=== PATIENT | female | born 1975 | race Two or more races ===

== ENCOUNTER 2016-11-14 12:37 | Emergency (ER) | payer BC ==
[2016-11-14 12:50] VITALS: BP 118/80
[2016-11-14] MEDS ORDERED: Ketorolac INJ* 30 MG/ML 1 ML VIAL IM ONE (14:10)
--- NOTE | 2016-11-14 14:33 | UC ---
David Farris Adam, scribed for Kalli Ramirez MD on 11/14/16 at 1346 . Lower Extremity/Ankle HPI - HPI Summary HPI Summary: Pt is a 41 year old female presenting with leg pain. The pain starts in the left calf and radiates up the rest of the leg. She has some numbness in her left calf. The right calf has not been hurting as much today, but she states that she has been having intermittent pain and numbness in both legs for several months. She also reports swelling in both legs for several months. Pt has a Hx of spinal stenosis and degenerative discs in C5-C7. She reports back pain and a sensation like air blowing on her arms. She takes Motrin and Tramadol for the pain. She has been receiving injections and seeing Dr. Salcido (last seen 3 weeks ago, said MRI was unchanged). Her work consists of sitting down for most of the day. Pt had a URI several weeks ago. She also c/o chills and dizziness. No N/V/D, constipation, incontinence, visual disturbance. PMHx of right hip arthroscopy, left hip arthroscopy/debridement, ulcer, and kidney stones. - History of Current Complaint Chief Complaint: UCLowerExtremity Stated Complaint: LEG PAIN Hx Obtained From: Patient Hx Last Menstrual Period: january 2015 - iud Onset/Duration: Gradual Onset, Lasting Weeks, Still Present Severity Initially: Moderate Severity Currently: Moderate Aggravating Factor(s): Standing, Ambulation Alleviating Factor(s): Other - Tramadol, Motrin Able to Bear Weight: Yes - Allergies/Home Medications Allergies/Adverse Reactions: Allergies Allergy/AdvReac Type Severity Reaction Status Date / Time Iohexol [From Omnipaque] Allergy pt stated Verified 11/14/16 12:51 mouth,tongue,lip felt numb after injection . Latex Allergy Itching Verified 11/14/16 12:51 Milnacipran [From Savella] Allergy Unknown Verified 11/14/16 12:51 Reaction Details Phenazopyridine Allergy Hives/Diff. Verified 11/14/16 12:51 [From Pyridium] Breathing/I tching Shellfish Allergy AdvReac Blisters Verified 11/14/16 12:51 Sulfamethoxazole AdvReac Itching Verified 11/14/16 12:51 w/Trimethoprim [From Bactrim] contrast dye Allergy pt stated Uncoded 11/14/16 12:51 mouth,tongue,lip felt numb after injection . PMH/Surg Hx/FS Hx/Imm Hx Endocrine History Of: Denies: Diabetes, Thyroid Disease Cardiovascular History Of: Denies: Cardiac Disorders, Hypertension, Pacemaker/ICD Respiratory History Of: Denies: COPD, Asthma GI/ History Of: Reports: Ulcer, Kidney Stones Denies: Renal Disease Cancer History Of: Denies: Breast Cancer - Surgical History Surgical History: Yes Surgery Procedure, Year, and Place: D&C. right hip arthroscopy 07/08/2013 [place]. HEMORROIDECTOMY. WISDOM TEETH EXTRACTION. LEFT HIP ARTHROSCOPY/ DEBRIDEMENT 02/02, [place],. PRECANCEROUS SKIN CELLS REMOVED 01/2016 - Family History Known Family History: Positive: Cardiac Disease - mother, Other - mother - aortic aneurysm - Social History Occupation: Employed Full-time Lives: Alone Alcohol Use: Rare Substance Use Type: None Smoking Status (MU): Never Smoked Tobacco Review of Systems Constitutional: Chills Musculoskeletal: Myalgia Neurological: Weakness, Numbness, Other - Dizziness All Other Systems Reviewed And Are Negative: Yes Physical Exam Triage Information Reviewed: Yes Appearance: No Pain Distress, Well-Nourished, Other: - [place] color Vital Signs: Initial Vital Signs Temp 97.7 F 11/14/16 12:44 Pulse 115 11/14/16 12:44 Resp 18 11/14/16 12:44 BP 118/80 11/14/16 12:44 Pulse Ox 100 11/14/16 12:44 Eyes: Positive: Conjunctiva Clear, Other: - Clear corneas ENT: Positive: Pharynx normal - No purulence, Other: - Normal TM's and canals, no discharge. Negative: Pharyngeal erythema, Nasal drainage, TM red, Tonsillar swelling, Tonsillar exudate Dental Exam: Normal Neck: Positive: Supple, Nontender, Other: - FROM, no crepitus Respiratory: Positive: Chest non-tender, Normal breath sounds, No respiratory distress. Negative: Rhonchi, Wheezing Cardiovascular: Positive: RRR, No Murmur, Pulses Normal - Pedal pulses normal Abdomen Description: Positive: Nontender, No Organomegaly. Negative: Bruit, CVA Tenderness (R), CVA Tenderness (L) Bowel Sounds: Positive: Present, Other: - Normoactive Musculoskeletal: Positive: Other: - Left buttock tenderness. Tenderness in the left inguinal area. Full ROM at the waist. Negative calf tenderness. Elbows, wrists, knees, and ankles normal. Neurological: Positive: Alert, Muscle Tone Normal, Other: - Good gross coordination. Good heel to toe walk and good fine coordination. DTR's brisk and symmetric in all 4 extremities. Psychological: Positive: Normal Response To Family, Age Appropriate Behavior Skin: Positive: Other - Good color. Ecchymotic area on the medial aspect of the distal third of the leg.. Negative: rashes, significant lesion(s) Lower Extremity Course/Dx - Differential Dx/Diagnosis Provider Diagnoses: Spinal stenosis Discharge - Discharge Plan Condition: Stable Disposition: HOME Prescriptions: Naproxen [Naproxen 500 MG TABS] 500 mg PO BID #30 tab Patient Education Materials: Lumbar Spinal Stenosis (ED) Referrals: Alba Birch MD [Medical Doctor] - Additional Instructions: Follow up with Dr. Birch. Continue with regular medications, except take Naproxen instead of Motrin PM. Take the Naproxen with food or milk. You can take Benadryl (25-50 mg) at bedtime. The documentation as recorded by the David jacobs Adam accurately reflects the service I personally performed and the decisions made by me, Kalli Ramirez MD.
== END 2016-11-14 14:36 | disposition home or self-care (01) ==
LOC: UCEAST 12:37
DX: M48.00 Spinal stenosis, site unspecified (principal); Z88.1 Allergy status to other antibiotic agents; Z88.8 Allergy status to other drugs, medicaments and biological substances; Z91.041 Radiographic dye allergy status
CPT/HCPCS: 99212; G0463; J1885

== ENCOUNTER → 2017-06-02 17:44 | Emergency (ER) | payer BC ==
[~2017-06-02 17:44] MED LIST: HYDROcodone/ACETAMIN 5-325 MG* 1 TAB PO ONE; Morphine INJ* 4 MG/ML 1 ML SYRINGE IV ONE; NS 0.9% 1000 ML* 1,000 ML IV ONE; Ondansetron INJ* 2 MG/ML VIAL IV ONE
[2017-06-02 18:29] LABS: Hematocrit 39 % (35-47); Hemoglobin 13.2 g/dl (12.0-16.0); Mean Corpuscular HGB Conc 34 g/dl (31-36); Mean Corpuscular Hemoglobin 30 pg (27-31); Mean Corpuscular Volume 87 fL (80-97); Mean Platelet Volume 10 um3 (7.4-10.4); Red Blood Count 4.48 10^6/ul (4.0-5.4); Red Cell Distribution Width 13 % (10.5-15); White Blood Count 5.4 10^3/ul (3.5-10.8)
[2017-06-02 18:41] LABS: ALT 14 U/L (7-52); AST 21 U/L (13-39); Albumin 4.5 g/dL (3.2-5.2); Alkaline Phosphatase 67 U/L (34-104); Anion Gap 7 mmol/L (2-11); BUN/Creatinine Ratio 12.1 (8-20); Blood Urea Nitrogen 12 mg/dL (6-24); C Reactive Protein < 1.00 mg/L (< 5.00); CO2 Carbon Dioxide 27 mmol/L (22-32); Calcium 9.6 mg/dL (8.6-10.3); Chloride 106 mmol/L (101-111); EGFR African American 79.1 (>60); EGFR Non-African American 61.5 (>60); Glucose 92 mg/dL (70-100); Lipase 34 U/L (11.0-82.0); Magnesium 2.1 mg/dL (1.9-2.7); Potassium 3.7 mmol/L (3.5-5.0); Sodium 140 mmol/L (133-145); Total Protein 7.5 g/dL (6.4-8.9)
--- NOTE | 2017-06-02 20:30 | RAD ---
Indication: Right upper quadrant pain. Real-time sonography of the right upper quadrant was marked. The liver measures 17.3 cm in length. There are no focal lesions or intrahepatic ductal dilatation noted. The gallbladder demonstrates no gallstones, pericholecystic fluid or wall thickening. The common duct measures 4 mm. The right kidney measures 10.1 x 4.2 x 4.6 cm. No hydronephrosis is noted. The pancreas head, neck and proximal body demonstrates no mass or pancreatic ductal dilatation. The proximal aorta and inferior vena cava are unremarkable. IMPRESSION: Borderline hepatomegaly. No evidence of cholelithiasis or biliary duct dilatation.
[2017-06-02 20:32] LABS: Urine Bacteria Absent (Absent); Urine Bilirubin Negative (Negative); Urine Glucose Negative (Negative); Urine Nitrite Negative (Negative)
--- NOTE | 2017-06-02 22:04 | ED ---
Silvano Farris SooYoung, scribed for Kika Joya MD on 06/02/17 at 1946 . Abdominal Pain/Female - HPI Summary HPI Summary: A 41 y/o F presents to ED with c/o abd pain onset this AM. Radiates to back. Denies dysuria, hematuria. She states she didn't eat this AM. Pert PMx: kidney stones. Current sx feels different than kidney stones. Pt had pain below her R breast and she used an organic balm to alleviate the pain yesterday. [facility]: post- menopausal. Denies daily meds other than allergy medicine. - History of Current Complaint Chief Complaint: EDAbdPain Stated Complaint: SHARP ABD PAIN Time Seen by Provider: 06/02/17 17:53 Hx Obtained From: Patient Hx Last Menstrual Period: january 2015 - iud Onset/Duration: Sudden Onset, Lasting Hours - this AM, Still Present Timing: Constant Severity Initially: Moderate Severity Currently: Severe Pain Intensity: 8 Pain Scale Used: 0-10 Numeric Location: Diffuse Radiates: Yes Radiates to: Back Associated Signs and Symptoms: Negative: Urinary Symptoms Allergies/Adverse Reactions: Allergies Allergy/AdvReac Type Severity Reaction Status Date / Time Iohexol [From Omnipaque] Allergy pt stated Verified 11/14/16 12:51 mouth,tongue,lip felt numb after injection . Latex Allergy Itching Verified 11/14/16 12:51 Milnacipran [From Savella] Allergy Unknown Verified 11/14/16 12:51 Reaction Details Phenazopyridine Allergy Hives/Diff. Verified 11/14/16 12:51 [From Pyridium] Breathing/I tching Shellfish Allergy AdvReac Blisters Verified 11/14/16 12:51 Sulfamethoxazole AdvReac Itching Verified 11/14/16 12:51 w/Trimethoprim [From Bactrim] contrast dye Allergy pt stated Uncoded 11/14/16 12:51 mouth,tongue,lip felt numb after injection . PMH/Surg Hx/FS Hx/Imm Hx Previously Healthy: No Endocrine/Hematology History: Reports: Hx Anemia, Other Endocrine/Hematological Disorders - Hepatic (Fatty Liver) Denies: Hx Diabetes, Hx Thyroid Disease Cardiovascular History: Denies: Hx Hypertension, Hx Pacemaker/ICD Respiratory History: Reports: Hx Chronic Bronchitis, Hx Seasonal Allergies Denies: Hx Asthma, Hx Chronic Obstructive Pulmonary Disease (COPD) GI History: Reports: Hx Gastroesophageal Reflux Disease, Hx Irritable Bowel, Hx Ulcer History: Reports: Hx Kidney Stones Denies: Hx Dialysis, Hx Renal Disease Musculoskeletal History: Reports: Hx Arthritis, Hx Back Problems - neck, Hx Fibromyalgia, Hx Tendonitis, Other Musculoskeletal History - Spinal stenosis; Degenerative Disc Disease Sensory History: Reports: Hx Contacts or Glasses Denies: Hx Hearing Aid Opthamlomology History: Reports: Hx Contacts or Glasses Neurological History: Reports: Hx Headaches - TMJ, Other Neuro Impairments/ Disorders - PAIN CLINIC PATIENT Psychiatric History: Denies: Hx Panic Disorder - Cancer History Cancer Type, 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 right hip arthroscopy 07/08/2013 [place]. HEMORROIDECTOMY. WISDOM TEETH EXTRACTION. LEFT HIP ARTHROSCOPY/ DEBRIDEMENT 02/02, [place],. PRECANCEROUS SKIN CELLS REMOVED 01/2016 Infectious Disease History: Denies: Hx Clostridium Difficile, Hx Hepatitis, Hx Human Immunodeficiency Virus (HIV), Hx of Known/Suspected MRSA, Hx Shingles, Hx Tuberculosis, Hx Known/ Suspected VRE, Hx Known/Suspected VRSA, History Other Infectious Disease, Traveled Outside the [place] in Last 30 Days - Family History Known Family History: Positive: Cardiac Disease - mother, Hypertension, Other - mother - aortic aneurysm - Social History Occupation: Employed Full-time Lives: With Family Alcohol Use: Rare Hx Substance Use: No Substance Use Type: Reports: None Hx Tobacco Use: No Smoking Status (MU): Never Smoked Tobacco Review of Systems Negative: Fever Positive: Abdominal Pain Negative: dysuria, hematuria All Other Systems Reviewed And Are Negative: Yes Physical Exam Triage Information Reviewed: Yes Vital Signs On Initial Exam: Initial Vitals Temp Pulse Resp BP Pulse Ox 97.8 F 88 20 143/89 100 06/02/17 17:46 06/02/17 17:46 06/02/17 17:46 06/02/17 17:46 06/02/17 17:46 Vital Signs Reviewed: Yes Appearance: Positive: Well-Appearing, No Pain Distress Skin: Positive: Warm, Skin Color Reflects Adequate Perfusion, Dry Eyes: Positive: EOMI, [place] ENT: Positive: Pharynx normal, TMs normal Neck: Positive: Supple, Nontender Respiratory/Lung Sounds: Positive: Clear to Auscultation, Breath Sounds Present. Negative: Rales, Rhonchi, Wheezes Cardiovascular: Positive: RRR. Negative: Murmur, Rub, Other - ng: gallop Abdomen Description: Positive: Soft, Other: - pos: RUQ tenderness; neg: rebounding. Negative: Distended, Guarding Bowel Sounds: Positive: Present Musculoskeletal: Positive: Strength/ROM Intact. Negative: Edema Left, Edema Right Neurological: Positive: Sensory/Motor Intact, Alert, Oriented to Person Place, Time, CN Intact II-III Psychiatric: Positive: Affect/Mood Appropriate Diagnostics - Vital Signs Vital Signs Temp Pulse Resp BP Pulse Ox 06/02/17 17:46 97.8 F 88 20 143/89 100 - Laboratory Lab Results: Lab Results 06/02/17 06/02/17 06/02/17 Range/Units 18:11 18:11 18:11 WBC 5.4 (3.5-10.8) 10^3/ul RBC 4.48 (4.0-5.4) 10^6/ul Hgb 13.2 (12.0-16.0) g/dl Hct 39 (35-47) % MCV 87 (80-97) fL MCH 30 (27-31) pg MCHC 34 (31-36) g/dl RDW 13 (10.5-15) % Plt Count 211 (150-450) 10^3/ul MPV 10 (7.4-10.4) um3 Neut % (Auto) 52.1 (38-83) % Lymph % (Auto) 38.2 (25-47) % [place] % (Auto) 7.4 (1-9) % Eos % (Auto) 1.6 (0-6) % Baso % (Auto) 0.7 (0-2) % Absolute Neuts (auto) 2.8 (1.5-7.7) 10^3/ul Absolute Lymphs (auto) 2.1 (1.0-4.8) 10^3/ul Absolute Monos (auto) 0.4 (0-0.8) 10^3/ul Absolute Eos (auto) 0.1 (0-0.6) 10^3/ul Absolute Basos (auto) 0 (0-0.2) 10^3/ul Absolute Nucleated RBC 0.01 10^3/ul Nucleated RBC % 0.2 D-Dimer, Quantitative (Less Than 230) ng/mL Sodium 140 (133-145) mmol/L Potassium 3.7 (3.5-5.0) mmol/L Chloride 106 (101-111) mmol/L Carbon Dioxide 27 (22-32) mmol/L Anion Gap 7 (2-11) mmol/L BUN 12 (6-24) mg/dL Creatinine 0.99 H (0.51-0.95) mg/dL Est GFR ( Amer) 79.1 (>60) Est GFR (Non-Af Amer) 61.5 (>60) BUN/Creatinine Ratio 12.1 (8-20) Glucose 92 (70-100) mg/dL Lactic Acid 0.9 (0.5-2.0) mmol/L Calcium 9.6 (8.6-10.3) mg/dL Magnesium 2.1 (1.9-2.7) mg/dL Total Bilirubin 0.60 (0.2-1.0) mg/dL AST 21 (13-39) U/L ALT 14 (7-52) U/L Alkaline Phosphatase 67 (34-104) U/L C-Reactive Protein < 1.00 (< 5.00) mg/L Total Protein 7.5 (6.4-8.9) g/dL Albumin 4.5 (3.2-5.2) g/dL Globulin 3.0 (2-4) g/dL Albumin/Globulin Ratio 1.5 (1-3) Lipase 34 (11.0-82.0) U/L Beta HCG, Quant 0.71 mIU/mL Urine Color Urine Appearance Urine pH (5-9) Ur Specific [place] (1.010-1.030) Urine Protein (Negative) Urine Ketones (Negative) Urine Blood (Negative) Urine Nitrate (Negative) Urine Bilirubin (Negative) Urine Urobilinogen (Negative) Ur Leukocyte Esterase (Negative) Urine WBC (Auto) (Absent) Urine RBC (Auto) (Absent) Ur Squamous Epith Cells (Absent) Amorphous Crystals (Absent) Urine Bacteria (Absent) Urine Glucose (Negative) 06/02/17 06/02/17 Range/Units 18:11 20:18 WBC (3.5-10.8) 10^3/ul RBC (4.0-5.4) 10^6/ul Hgb (12.0-16.0) g/dl Hct (35-47) % MCV (80-97) fL MCH (27-31) pg MCHC (31-36) g/dl RDW (10.5-15) % Plt Count (150-450) 10^3/ul MPV (7.4-10.4) um3 Neut % (Auto) (38-83) % Lymph % (Auto) (25-47) % [place] % (Auto) (1-9) % Eos % (Auto) (0-6) % Baso % (Auto) (0-2) % Absolute Neuts (auto) (1.5-7.7) 10^3/ul Absolute Lymphs (auto) (1.0-4.8) 10^3/ul Absolute Monos (auto) (0-0.8) 10^3/ul Absolute Eos (auto) (0-0.6) 10^3/ul Absolute Basos (auto) (0-0.2) 10^3/ul Absolute Nucleated RBC 10^3/ul Nucleated RBC % D-Dimer, Quantitative < 200 (Less Than 230) ng/mL Sodium (133-145) mmol/L Potassium (3.5-5.0) mmol/L Chloride (101-111) mmol/L Carbon Dioxide (22-32) mmol/L Anion Gap (2-11) mmol/L BUN (6-24) mg/dL Creatinine (0.51-0.95) mg/dL Est GFR ( Amer) (>60) Est GFR (Non-Af Amer) (>60) BUN/Creatinine Ratio (8-20) Glucose (70-100) mg/dL Lactic Acid (0.5-2.0) mmol/L Calcium (8.6-10.3) mg/dL Magnesium (1.9-2.7) mg/dL Total Bilirubin (0.2-1.0) mg/dL AST (13-39) U/L ALT (7-52) U/L Alkaline Phosphatase (34-104) U/L C-Reactive Protein (< 5.00) mg/L Total Protein (6.4-8.9) g/dL Albumin (3.2-5.2) g/dL Globulin (2-4) g/dL Albumin/Globulin Ratio (1-3) Lipase (11.0-82.0) U/L Beta HCG, Quant mIU/mL Urine Color Straw Urine Appearance Clear Urine pH 7.0 (5-9) Ur Specific [place] 1.011 (1.010-1.030) Urine Protein Negative (Negative) Urine Ketones Negative (Negative) Urine Blood Negative (Negative) Urine Nitrate Negative (Negative) Urine Bilirubin Negative (Negative) Urine Urobilinogen Negative (Negative) Ur Leukocyte Esterase 1+ H (Negative) Urine WBC (Auto) Trace(0-5/hpf) (Absent) Urine RBC (Auto) Absent (Absent) Ur Squamous Epith Cells Present H (Absent) Amorphous Crystals Present H (Absent) Urine Bacteria Absent (Absent) Urine Glucose Negative (Negative) Result Diagrams: 06/02/17 18:11 06/02/17 18:11 Lab Statement: Any lab studies that have been ordered have been reviewed, and results considered in the medical decision making process. - Ultrasound No standard instances Ultrasound Interpretation: No Acute Changes - IMPRESSION: Borderline hepatomegaly. No evidence of cholelithiasis or biliary duct dilatation. Ultrasound Interpretation Completed By: Radiologist - EKG 1908 Cardiac Rate: NL - 79 bpm EKG Rhythm: Sinus Rhythm ST Segment: Normal - no ST elevation Re-Evaluation - Re-Evaluation 1 Re-Evaluation Time: 21:20 Change: Unchanged Comment: Discussing results with pt. Abdominal Pain Fem Course/Dx - Course Course Of Treatment: 41 yo female with ruq abd pain neg u/s and neg labs - ddimer also neg (she does have a melanoma hx). Pt was given pain meds and f/u with pmd - Diagnoses Provider Diagnoses: Abdominal pain Discharge - Discharge Plan Condition: Stable Disposition: HOME Prescriptions: HYDROcodone/ACETAMIN 5-325 MG* [[place] 5-325 TAB*] 1 tab PO Q8H PRN #20 tab MDD 3 PRN Reason: Pain Patient Education Materials: Hydrocodone/Acetaminophen (By mouth), Acute Abdominal Pain (ED) Referrals: Delilah Olvera MD [Primary Care Provider] - Additional Instructions: Follow up with your primary care provider in the next 2-3 days. Please return to the ED if you experience new or worsening symptoms. The documentation as recorded by the Silvano jacobs SooYoung accurately reflects the service I personally performed and the decisions made by me, Kika Joya MD.
[2017-06-02 22:49] VITALS: BP 135/94
== END | disposition home or self-care (01) ==
LOC: ED 17:44
DX: R10.9 Unspecified abdominal pain (principal)
CPT/HCPCS: 36415; 76705; 80053; 81003; 81015; 83605; 83690; 83735; 84702; 85025; 85379; 86140; 87086; 93005; 99283; J2270; J2405

== ENCOUNTER 2018-11-13 11:07 | Emergency (ER) | payer BC ==
--- OUTSIDE RECORDS SUMMARY | 2018-11-13 11:38 | XMS REPORT | Continuity of Care Document ---
:1975 External Reference #:[id number] Author Name GeovannaVicki duarte Care Team Providers Name Role Phone Delilah Olvera MD Primary Care Physician Unavailable Payers Type Date Identification Numbers Payment Provider Subscriber Policy Number: [id number] [employer] Cat Isaacs PayID: [id number] [address] [address] [place] [address] Expires: 2016 Policy Number: [employer] Medicaid Cat Isaacs [id number] PayID: [id number] [address] Effective: 2012 Policy Number: [employer] Medicaid Cat Isaacs [id number] Expires: 2013 PayID: [id number] [place] [address] Effective: 2012 Policy Number: [employer] Cat Isaacs [id number] Expires: 2014 PayID: [id number] [address] Advance Directives Description No Information Available Problems Date Description Provider Status Onset: 07/28/2012 Myalgia & Myositis Unspecified Delilah Olvera M.D. Active Onset: 07/28/2012 Irritable bowel syndrome Delilah Olvera M.D. Active Onset: 12/27/2014 Anaphylaxis due to shellfish Delilah Olvera M.D. Active Onset: 12/27/2014 Allergic rhinitis Delilah Olvera M.D. Active Onset: 12/27/2014 Allergic asthma Delilah Olvera M.D. Active Onset: 12/27/2014 Atopic dermatitis Delilah Olvera M.D. Active Onset: 01/11/2015 Calcium renal calculus Delilah Olvera M.D. Active Note: calcium Onset: 01/11/2015 Steatosis of liver Delilah Olvera M.D. Active Onset: 01/11/2015 Osteoarthritis of multiple joints Delilah Olvera M.D. Active Note: hip and L spine Onset: 07/07/2015 Displacement of cervical Nick Salcido M.D. Active intervertebral disc without myelopathy Onset: 10/31/2016 Cervical spondylosis without Nick Salcido M.D. Active myelopathy Onset: 02/27/2008 Cervical disc disorder Delilah Olvera M.D. Inactive Inactive: 07/20/2015 Note: mild central stenosis , broad based disk without foraminal stenosis Onset: 07/28/2012 Liver function tests abnormal Delilah Olvera M.D. Resolved Resolved: 01/11/2015 Onset: 06/02/2013 Thrombosed external hemorrhoids Mario Renner M.D. Resolved Resolved: 01/11/2015 Onset: 09/21/2014 Cellulitis Mario Renner M.D. 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 Tobacco Use Start: Unknown Never Smoked Cigarettes Smoking Status Reviewed: 10/30/18 Never Smoked Cigarettes ETOH Use Drinks Alcoholic Beverages Occasionally Tobacco Use Start: Unknown Patient has never smoked Recreational Drug Use Denies Drug Use Exercise Type/Frequency Exercises regularly # Partners in a Lifetime 5 Allergies, Adverse Reactions, Alerts Date Description Reaction Status Severity Comments 07/16/2012 Bactrim Urticaria Active Severe 07/16/2012 Piridium Urticaria Active Severe 07/16/2012 Latex Active 07/22/2012 Savella Active Mild dizziness, couldnt move 12/02/2013 Shellfish-derived Anaphylaxis Active Products 05/16/2016 Latex Active Medications Medication Date Status Form Strength Qnty SIG Indications Ordering Provider Diclofenac Sodium 10/30 Active Gel 3% 200gm apply topically Meredith, to feet, M.D. hands, wrist three to four times a day as needed Triamcinolone 06/06 Active Cream 0.5% 30gm apply R21 Thea Acetonide twice Cotton, daily to M.D. the affected area Miralax 03/06 Active Powder 17gm 1unit 17 grams K58.9 s by mouth May, every day M.D. as needed Magnesium Oxide 03/06 Active Capsules 400mg 60cap 1 cap E83.42 Delilah /2018 s daily Boom Olvera Nasonex 10/23 Active Suspension 50mcg/Act 30uni 1 spray J06.9 ts both mark Olvera M.DHeydi twice a day Levocetirizine 01/28 Active Tablets 5mg 30tab 1 by Delilah Dihydrochloride s mouth May, every day M.D. Proair HFA 07/27 Active Aerosol 108(90Bas 1unit 2 puffs R05 Delilah /2014 e) s every 4-6 Olvera, mcg/Act hours as M.D. needed Elbow 06/30 Active Misc 1unit as needed 726.32 Delilah Support/Countour s May, Cut/Medium M.D. Biotin 00 Active Tablets 7500 1 PO qd Unknown /0000 Advil Active Tablets 200mg 3 tabs as Unknown /0000 needed Benadryl Allergy Active Tablets 25mg 1-2 tabs Unknown /0000 twice a day for itching Desloratadine Active Tablets 5mg 30tab 1 by Delilah /0000 s mouth Olvera, every day M.D. Tizanidine HCL Active Capsules 2mg 14cap 1 cap by Delilah /0000 s mouth as May, needed at M.D. night for spasms Triamcinolone 05/09 Hx Cream 0.5% 30gm apply R21 Quique Acetonide twice Angela, [employer] SP[employer]ER OPERATOR - daily to 10/08 affected area Cephalexin 05/04 Hx Tablets 500mg 28tab 1 tab po Alhaji s q6h Glenn Lynn M.D.,FACP 05/11 Cephalexin 04/03 Hx Capsules 500mg 28cap take one L03.114 Alhaji /2016 s capsule Mic Alexandre, - every 6 M.D.,FACP 04/10 hours for 7 days Fluconazole 04/03 Hx Tablets 150mg 2tabs one by Quique mouth february ELIER Miller - repeat in 06/05 3 days as needed Meloxicam 12/19 Hx Tablets 7.5mg 60tab take one s tab twice Meredith, - daily as M.D. 04/03 needed for pain, avoid other nsaids Neti Pot Kit 10/23 Hx Kit 2300-700m 1unit Use as J06.9 Jc Sinus Wash/Clear /2016 g s directed Matheny, [place] - twice M.D. 11/28 daily Patanol 06/05 Hx Solution 0.1% 5ml 1 gtt B30.9 Adam /2015 both eyes Jason, [employer] SP[employer]ER OPERATOR - bid x's 10/23 Zantac 150 02/26 Hx Tablets 150mg 1 by R10.13 Unknown Maximum Strength /2015 mouth - twice a Fluticasone 01/03 Hx Suspension 50mcg/Act 16gm use one Jc Propionate spray Matheny, - into each M.D. 10/08 nostril /2016 every morning as directed Amoxicillin/Clavu 01/02 Hx Tablets 875-125mg 20tab 1 by J01.90 [place] lanate Potassium /2015 s mouth Pachikara, - twice a M.D. Duloxetine HCL 08/[address] 20mg 60cap take one M79.7 Delilah /2015 Part s capsule May, - by mouth M.D. 01/18 one time daily Lyrica 07/20 Hx Capsules 25mg 30cap once a M79.7 Delilah s day May, - M.D. 08/22 Methylprednisolon 07/07 Hx Tablets 4mg 1pack take as 722.0 Nick klein (Keo) directed Loly, - M.D. 07/13 Naproxen 07/07 Hx Tablets 500mg 60tab 1 by M50.22 Nick s mouth Loly, - twice a M.D. 02/28 day after /2016 meals after medrol complete Cyclobenzaprine 02/11 Hx Tablets 10mg 10tab one or 840.8 Josefa HCL s 1/2 by Clarence, - mouth at M.D. 02/14 bedtime as needed spasm ibuprofen 02/11 Hx Tablets 600mg 90tab three 840.8 Josefa /2015 s times a Clarence, - day as M.D. 02/14 needed Indomethacin 01/28 Hx Capsules 50mg 1 by mouth - twice a Omeprazole 01/[address] 20mg 1 by mouth - every day 07/07 Oxycodone HCL 01/28 Hx Tablets 5mg 50tab 1-2 by s mouth - four 06/16 times day as needed Ranitidine HCL 01/19 Hx Tablets 150mg 60tab take one 787.1 s tablet by May - mouth M.D. 05/21 twice day Ciprofloxacin HCL 12/24 Hx Tablets 500mg 14tab 1 tab by 599.0 Adam s mouth Jason [employer] SP[employer]ER OPERATOR - twice a 12/26 day x's days Diflucan 12/24 Hx Tablets 150mg 2tabs sig 1 by 599.0 Adam mouth ELIER Gomez - repeat in 12/26 1 week needed Cephalexin 09/21 Hx Capsules 500mg 21cap three 682.8 s times a Zurdo, - day M.D. 12/24 Fluconazole 09/21 Hx Tablets 150mg 1tabs one time 682.8 dose Zurdo, - M.D. 12/24 Ibuprofen 09/21 Hx Tablets 600mg 45tab three 682.8 s times a Zurdo, - day as M.D. 02/14 needed Prednisone 07/27 Hx Tablets 10mg QS take 3 786.2 tab daily May, - x 2 days M.D. 09/21 then tab daily x 3 days and then 1 tab daily X3 days Duloxetine HCL 07/[address] 20mg 30cap 1 tab po 729.1 Zsofi Part s q day Jack, - JUDICIAL ASSISTANT 12/24 Omeprazole 07/[address] 20mg 30cap 1 tab by 536.8 Zsofi s mouth Jack, - every JUDICIAL ASSISTANT 12/24 Tizanidine HCL 12/14 Hx Capsules 2mg 30cap 1 by s mouth at [facility], - bedtime M.D. 06/06 as needed Pepcid ac Maximum 12/02 Hx Tablets 20mg 30tab once a 536.8 Delilah s day May, - M.D. 02/10 Vitamin D3 High 06/30 Hx Capsules 1000Unit 30cap 1 a day E55.9 Delilah s May - M.DHeydi 04/03 Zolpidem Tartrate 04/29 Hx Tablets 5mg 20tab 1 tab by 780.52 s mouth in [facility], - night as M.D. 12/02 needed Meloxicam 11/25 Hx Tablets 7.5mg 60tab 1 po bid 848.8 s as needed Shubham, - for pain M.D. 07/07 Lyrica 09/18 Hx Capsules 50mg 60cap take 1 729.1 s tab po hs May - M.D. 11/25 Amoxicillin 09/08 Hx Tablets 875mg 20tab 1 po bid s May - M.DHeydi 09/18 Claritin 09/04 Hx Tablets 10mg 10tab 1 po qd 465.8 Delilah /2012 s May - M.D. 04/29 Cymbalta 07/[address] 60mg 30cap 1 po qd 729.1 Delilah /2012 Part s May - M.D. 09/04 Miralax 07/22 Hx Packet [id number] 1mon 17 gm K58.9 every day May, - as needed M.D. 03/06 Cymbalta 07/[address] 60mg 14cap 1 po qd 729.1 Part s May - M.D. 09/[address] 60mg 30cap 1 po qd Unknown /0000 Part s - 11/25 Pepcid ac Hx Tablets 10mg 60tab 1 po bid Unknown /0000 s prn - 02/10 Tramadol HCL Hx Tablets 50mg 120ta qid prn Unknown /0000 bs - 06/06 Mobic Hx Tablets 7.5mg 30tab 1 po bid Unknown /0000 s prn - 12/24 Tizanidine HCL Hx Capsules 4mg 30cap take one Delilah / s tablet at [facility], - bedtime X M.D. 12/14 7 days then as needed Voltaren Hx Gel 1% 500un Apply A Delilah 0000 its Small [facility], - Amount Of M.D. 06/16 Topically Four Times A Day as Needed Zyrtec Allergy Hx Capsules 10mg 30cap 1 po qd Unknown /0000 s - 02/09 Nasonex Hx Suspension 50mcg/Act 17gm 2 sprays to each Pachikara, - nostril M.D. 10/23 daily Methocarbamol Hx Tablets 500mg 2 po q 4- [place], /0000 6 hrs prsung Gaspar MD - 06/30 Aspirin Hx Tablets 325mg 1 by Unknown /0000 mouth - every day 02/14 Vitamin B12 Hx Tablets ER 1000mcg 1 by Unknown /0000 mouth - every day 04/03 Naprosyn Hx Tablets 500mg twice Unknown /0000 daily - with food 09/12 as needed /2015 Naproxen Hx Tablets 500mg 1 tablet Unknown /0000 with food - by mouth 12/19 twice day Metronidazole Hx Tablets 500mg one Unknown /0000 tablet by - mouth 2 06/05 daily for 7 days Hydrocodone-Aceta Hx Tablets 5-325mg 1 tab by Unknown minophen /0000 mouth - every 4- 10/08 6 hours /2016 as needed pain Immunizations CPT Code Status Date Vaccine Lot # [id number] Given 09/22/2015 Tdap - Tetanus/Diptheria/Acellular Pertussis [id number] Given 07/20/2015 Influenza Virus Vaccine, Quadrivalent, Split, [id number] Preservative Free [id number] Given 09/30/2014 Flu Vaccine Split Virus Preservative Free For Indiv [id number] 3Yr Older 29916 Given 11/25/2012 Influenza Virus 3Yrs & Over Vital Signs Date Vital Result Comment 10/30/2018 11:05am Height 60 inches 5'0" Weight 125.38 lb Heart Rate 86 /min BP Systolic 116 mmHg BP Diastolic 78 mmHg Pain Level 3 O2 % BldC Oximetry 99 % BMI (Body Mass Index) 24.5 kg/m2 04/24/2018 12:59pm Height 60 inches 5'0" Weight 129.00 lb Heart Rate 83 /min BP Systolic Sitting 118 mmHg BP Diastolic Sitting 80 mmHg Body Temperature 97.7 F O2 % BldC Oximetry 98 % BMI (Body Mass Index) 25.2 kg/m2 03/06/2018 12:06pm Height 60 inches 5'0" Weight 129.00 lb Heart Rate 90 /min BP Systolic Sitting 102 mmHg BP Diastolic Sitting 70 mmHg O2 % BldC Oximetry 99 % BMI (Body Mass Index) 25.2 kg/m2 01/02/2018 12:09pm Weight 126.50 lb Heart Rate 94 /min BP Systolic Sitting 104 mmHg BP Diastolic Sitting 70 mmHg Pain Level 7 O2 % BldC Oximetry 99 % 11/28/2017 4:00pm Weight 123.12 lb Heart Rate 80 /min BP Systolic Sitting 122 mmHg BP Diastolic Sitting 68 mmHg Body Temperature 98.2 F O2 % BldC Oximetry 99 % 10/08/2017 12:10pm Weight 120.25 lb Heart Rate 86 /min BP Systolic Sitting 130 mmHg BP Diastolic Sitting 80 mmHg Pain Level 7 O2 % BldC Oximetry 98 % 06/06/2017 1:42pm Weight 120.00 lb Heart Rate 83 /min BP Systolic Sitting 102 mmHg BP Diastolic Sitting 68 mmHg Body Temperature 97.3 F O2 % BldC Oximetry 94 % 05/09/2017 3:44pm Weight 121.00 lb Heart Rate 80 /min BP Systolic Sitting 120 mmHg BP Diastolic Sitting 70 mmHg Respiratory Rate 16 /min Body Temperature 97.9 F 04/03/2017 10:22am Weight 146.00 lb Heart Rate 98 /min BP Systolic Sitting 120 mmHg BP Diastolic Sitting 78 mmHg Body Temperature 98.7 F O2 % BldC Oximetry 98 % 12/19/2016 1:17pm Height 60 inches 5'0" Heart Rate 84 /min BP Systolic Sitting 110 mmHg BP Diastolic Sitting 70 mmHg Respiratory Rate 14 /min Body Temperature 97.3 F 12/10/2016 3:50pm Height 60 inches 5'0" Weight 139.38 lb Heart Rate 84 /min BP Systolic Sitting 116 mmHg BP Diastolic Sitting 80 mmHg Respiratory Rate 14 /min Body Temperature 97.3 F BMI (Body Mass Index) 27.2 kg/m2 10/31/2016 1:24pm Height 60 inches 5'0" Weight 142.00 lb Heart Rate 66 /min BP Systolic Standing 124 mmHg BP Diastolic Standing 80 mmHg Pain Level 9 BMI (Body Mass Index) 27.7 kg/m2 10/23/2016 4:33pm Weight 142.00 lb Heart Rate 78 /min BP Systolic Sitting 118 mmHg BP Diastolic Sitting 74 mmHg Body Temperature 98.8 F O2 % BldC Oximetry 98 % 09/17/2016 3:04pm Height 60 inches 5'0" Weight 140.00 lb Heart Rate 72 /min BP Systolic Sitting 122 mmHg BP Diastolic Sitting 80 mmHg Pain Level 9 BMI (Body Mass Index) 27.3 kg/m2 09/12/2016 2:30pm Weight 140.00 lb Heart Rate 103 /min BP Systolic Sitting 118 mmHg BP Diastolic Sitting 88 mmHg Body Temperature 98.0 F Pain Level 8 L side of body O2 % BldC Oximetry 99 % 06/05/2016 4:24pm Weight 140.00 lb Heart Rate 84 /min BP Systolic 128 mmHg BP Diastolic 80 mmHg Body Temperature 97.7 F O2 % BldC Oximetry 99 % 05/16/2016 12:06pm Weight 140.00 lb Heart Rate 83 /min BP Systolic 122 mmHg BP Diastolic 76 mmHg Body Temperature 97.0 F O2 % BldC Oximetry 99 % 02/29/2016 1:56pm Weight 136.00 lb Heart Rate 89 /min BP Systolic Sitting 112 mmHg BP Diastolic Sitting 68 mmHg Body Temperature 97.8 F O2 % BldC Oximetry 98 % 01/03/2016 2:24pm Height 60 inches 5'0" Weight 136.12 lb Heart Rate 94 /min BP Systolic Sitting 102 mmHg BP Diastolic Sitting 60 mmHg Body Temperature 96.4 F O2 % BldC Oximetry 99 % BMI (Body Mass Index) 26.6 kg/m2 10/27/2015 9:51am Height 60 inches 5'0" Weight 133.00 lb Heart Rate 76 /min BP Systolic Sitting 110 mmHg BP Diastolic Sitting 70 mmHg Pain Level 9 L side BMI (Body Mass Index) 26.0 kg/m2 09/22/2015 12:10pm Height 60 inches 5'0" Weight 133.00 lb Heart Rate 96 /min BP Systolic Sitting 122 mmHg BP Diastolic Sitting 80 mmHg Respiratory Rate 15 /min Body Temperature 98.0 F O2 % BldC Oximetry 98 % BMI (Body Mass Index) 26.0 kg/m2 08/22/2015 11:19am Height 60 inches 5'0" Weight 130.00 lb Heart Rate 80 /min BP Systolic Sitting 118 mmHg BP Diastolic Sitting 70 mmHg Respiratory Rate 14 /min Body Temperature 98.0 F O2 % BldC Oximetry 97 % BMI (Body Mass Index) 25.4 kg/m2 07/25/2015 3:22pm Height 60 inches 5'0" Weight 130.00 lb Heart Rate 72 /min BP Systolic 120 mmHg BP Diastolic 70 mmHg Pain Level 7 neck,back,arms BMI (Body Mass Index) 25.4 kg/m2 07/20/2015 11:38am Weight 130.25 lb Heart Rate 88 /min BP Systolic Sitting 135 mmHg BP Diastolic Sitting 91 mmHg Body Temperature 97.4 F Pain Level 6 07/07/2015 3:45pm Height 60 inches 5'0" Weight 127.00 lb Heart Rate 62 /min BP Systolic Sitting 122 mmHg BP Diastolic Sitting 70 mmHg Pain Level 8 neck/L arm/back BMI (Body Mass Index) 24.8 kg/m2 06/16/2015 11:57am Weight 127.50 lb Heart Rate 87 /min BP Systolic Sitting 123 mmHg BP Diastolic Sitting 86 mmHg 02/14/2015 11:58am Heart Rate 96 /min BP Systolic Sitting 110 mmHg BP Diastolic Sitting 74 mmHg Body Temperature 97.5 F Pain Level 10 O2 % BldC Oximetry 98 % 02/11/2015 11:35am Heart Rate 89 /min BP Systolic Sitting 112 mmHg BP Diastolic Sitting 78 mmHg Body Temperature 97.1 F Pain Level 7 L shoulder & side O2 % BldC Oximetry 98 % 02/09/2015 12:02pm Weight 128.50 lb Heart Rate 74 /min BP Systolic Sitting 112 mmHg BP Diastolic Sitting 80 mmHg Body Temperature 97.2 F Pain Level 10 O2 % BldC Oximetry 99 % 01/19/2015 11:01am Weight 124.00 lb Heart Rate 88 /min BP Systolic Sitting 124 mmHg BP Diastolic Sitting 86 mmHg Body Temperature 97.3 F O2 % BldC Oximetry 98 % 01/05/2015 11:03am Weight 124.00 lb Heart Rate 92 /min BP Systolic Sitting 126 mmHg BP Diastolic Sitting 80 mmHg Body Temperature 96.1 F 12/24/2014 4:12pm Weight 121.50 lb Heart Rate 118 /min BP Systolic Sitting 108 mmHg BP Diastolic Sitting 84 mmHg Body Temperature 95.8 F O2 % BldC Oximetry 98 % 09/21/2014 3:38pm Weight 124.00 lb Heart Rate 86 /min BP Systolic Sitting 126 mmHg BP Diastolic Sitting 78 mmHg 07/27/2014 9:26am Weight 121.00 lb Heart Rate 88 /min BP Systolic Sitting 100 mmHg BP Diastolic Sitting 60 mmHg Body Temperature 98.4 F O2 % BldC Oximetry 98 % 07/07/2014 11:09am Weight 122.00 lb Heart Rate 100 /min BP Systolic Sitting 110 mmHg BP Diastolic Sitting 60 mmHg 05/11/2014 10:09am Height 59.5 inches 4'11.50" Weight 125.00 lb Heart Rate 80 /min BP Systolic Sitting 96 mmHg BP Diastolic Sitting 62 mmHg BMI (Body Mass Index) 24.8 kg/m2 02/10/2014 11:56am Height 59.5 inches 4'11.50" Weight 130.00 lb Heart Rate 78 /min BP Systolic Sitting 92 mmHg BP Diastolic Sitting 64 mmHg Body Temperature 97.2 F BMI (Body Mass Index) 25.8 kg/m2 12/02/2013 10:19am Weight 129.00 lb Heart Rate 68 /min BP Systolic Sitting 112 mmHg BP Diastolic Sitting 72 mmHg 06/30/2013 10:09am Weight 129.00 lb Heart Rate 91 /min BP Systolic Sitting 98 mmHg BP Diastolic Sitting 80 mmHg 06/02/2013 9:42am Height 59 inches 4'11" Weight 127.00 lb Heart Rate 103 /min BP Systolic Sitting 108 mmHg BP Diastolic Sitting 62 mmHg BMI (Body Mass Index) 25.6 kg/m2 04/29/2013 2:49pm Weight 131.00 lb Heart Rate 83 /min BP Systolic Sitting 104 mmHg BP Diastolic Sitting 74 mmHg 04/24/2013 4:04pm Weight 127.00 lb Heart Rate 76 /min BP Systolic Sitting 120 mmHg BP Diastolic Sitting 80 mmHg 04/20/2013 3:44pm Weight 130.00 lb Heart Rate 79 /min BP Systolic Sitting 100 mmHg BP Diastolic Sitting 90 mmHg 02/06/2013 12:48pm Weight 134.00 lb Heart Rate 76 /min BP Systolic Sitting 110 mmHg BP Diastolic Sitting 68 mmHg 12/24/2012 11:42am Height 59 inches 4'11" Weight 136.25 lb Heart Rate 64 /min BP Systolic Sitting 116 mmHg BP Diastolic Sitting 72 mmHg BMI (Body Mass Index) 27.5 kg/m2 12/04/2012 1:44pm Height 59 inches 4'11" Weight 134.00 lb Heart Rate 68 /min BP Systolic Sitting 116 mmHg BP Diastolic Sitting 76 mmHg BMI (Body Mass Index) 27.1 kg/m2 11/25/2012 1:41pm Height 59 inches 4'11" Weight 136.00 lb Heart Rate 76 /min BP Systolic Sitting 112 mmHg BP Diastolic Sitting 68 mmHg Body Temperature 97.6 F BMI (Body Mass Index) 27.5 kg/m2 09/18/2012 10:34am Height 59 inches 4'11" Weight 136.00 lb Heart Rate 68 /min BP Systolic Sitting 100 mmHg BP Diastolic Sitting 74 mmHg BMI (Body Mass Index) 27.5 kg/m2 09/04/2012 11:47am Height 59 inches 4'11" Weight 137.00 lb Heart Rate 98 /min BP Systolic Sitting 118 mmHg BP Diastolic Sitting 80 mmHg Body Temperature 97.2 F BMI (Body Mass Index) 27.7 kg/m2 07/22/2012 10:51am Height 59 inches 4'11" Weight 136.00 lb Heart Rate 104 /min BP Systolic Sitting 126 mmHg BP Diastolic Sitting 90 mmHg BMI (Body Mass Index) 27.5 kg/m2 07/16/2012 10:35am Height 59 inches 4'11" Weight 136.00 lb Heart Rate 88 /min BP Systolic Sitting 100 mmHg BP Diastolic Sitting 80 mmHg BMI (Body Mass Index) 27.5 kg/m2 Results Test Date Facility Test Result H/L Range Note Basic Metabolic 01/04/2018 [facility] Sodium 139 mmol/L N 133- 145 Panel [address] [place] [address] [phone] Potassium 4.3 mmol/L N 3.5-5.0 Chloride 104 mmol/L N 101-111 Co2 Carbon Dioxide 31 mmol/L N 22-32 Anion Gap 4 mmol/L N 2-11 Glucose 87 mg/dL N 70-100 Blood Urea Nitrogen 12 mg/dL N 6-24 Creatinine 0.83 mg/dL N 0.51-0.95 BUN/Creatinine Ratio 14.5 N 8-20 Calcium 10.0 mg/dL N 8.6-10.3 Egfr Non- 75.0 >60 Egfr 96.5 >60 1 Laboratory test 01/04/2018 [facility] Calcium 4.97 mg/dL N 4.65-5.[address] [place] [address] [phone] Magnesium 1.9 mg/dL N 1.9-2.7 Vitamin B12 And 12/20/2016 [facility] Vitamin B12 1380 pg/mL High 180-914 2 Folate Serum [address] [place] [address] [phone] Folic Acid (Folate) 10.83 ng/mL N >3.99 3 Hla B27 12/10/2016 [facility] Hla B27 Negative N [address] [place] [address] [phone] Hla B27 Interp See Comment N 5 Laboratory test 12/10/2016 [facility] Erythrocyte Sed 21 mm/Hr High 0-14 [address] [place] [address] [phone] C Reactive Protein < 1.00 mg/L N < 5.00 7 Vitamin D 1,25 12/10/2016 [facility] Vitamin D Total 38.8 ng/mL N 30-50 8 And Vitamin D,[address] 25(Oh) [place] [address] [phone] Vitamin D, 1,25 Dihydroxy 67 pg/mL N 18-78 9 Laboratory test 12/10/2016 [facility] Rheumatoid Factor <15 IU/ mL N <15 [address] [place] [address] [phone] Celiac Panel 12/10/2016 [facility] Tissue <1.2 U/mL N [address] [place] [address] Ab [phone] Immunoglobulin A 246 mg/dL N 61 - 356 Celiac Interpretation See Comment N 12 Laboratory test 12/10/2016 [facility] Creatine 152 U/L N 10- 223 [address] Kinase(CK) [place] [address] [phone] Aso (Antistreptolysin O) Titer 400 IU/mL IU/mL Abnormal <200 Iu/mL 14 Anca AB Ser If 12/10/2016 [facility] C-Anca Negative N Negative [address] [place] [address] [phone] P-Anca Negative N Negative 15 Laboratory test 12/10/2016 [facility] Lyme Disease Negative N Negative [address] [place] [address] [phone] Protein 12/10/2016 [facility] Total 7.6 g/dL N 6.3 - 7.9 Electrophoresis 101 Protein(Pep) [place] [address] [phone] Albumin 3.9 g/dL N 3.4-4.7 Alpha-1 Globulin 0.3 g/dL N 0.1-0.3 Alpha-2 Globulin 1.1 g/dL Abnormal 0.6-1.0 Beta Globulin 1.1 g/dL N 0.7-1.2 Gamma Globulin 1.3 g/dL N 0.6-1.6 Albumin/Globulin Ratio 1.03 N Impression See Comment N 17 Laboratory test 12/10/2016 [facility] Angiotensin 27 U/L N 8 - [address] [place] [address] [phone] Anti-Thyroid 12/10/2016 [facility] Thyroperoxidase AB 0.74 N < 9 19 Antibodies 101 IU/[place] [address] [phone] Thyroglobulin AB <1.8 IU/mL N <4.0 20 Laboratory test 12/10/2016 [facility] TSH (Thyroid 1.16 mcIU/mL N 0.34-5.[address] Stim [place]orm) [place] [address] [phone] Free T4 (Free Thyroxine) 0.93 ng/dL N 0.61-1.12 22 T3 Free 3.10 pg/mL N 2.5-3.9 23 Ssa/SSB Abs Igg 12/10/2016 [facility] SS-A/Ro Antibody <0.2 U N [address] [place], [place] [id number] [phone] SS-B/La Antibody <0.2 U N 25 Laboratory test 04/17/2016 [facility] Clotest SEE RESULT [address] [place] [address] [phone] Laboratory test 04/17/2016 [facility] Surgical SEE RESULT [address] [place] [address] [phone] Laboratory test 02/29/2016 [facility] TSH (Thyroid 1.03 ?IU/mL N 0.34-[address] Stim Horm) .[address] [place] [address] [phone] Vitamin B12 214 pg/mL N 180-986 28 Connective Tissue 02/27/2016 [facility] Anti-Nuclear 0.3 U N [address] [place] [address] [phone] Cyclic Citrullinated Peptide <15.6 U N 30 Interpretation See Comment N 31 Laboratory 09/13/2015 [facility] Hepatitis B Nonreactive N Nonreactive test finding [address] [place] [address] [phone] Hepatitis C Antibody Nonreactive N Nonreactive Vitamin B12 347 pg/mL N 180-914 32 Vitamin D Total 25(Oh) 27.5 ng/mL Low 30-50 HIV 1/2 AB 08/19/2015 [facility] HIV 1 2 Nonreactive N Nonreactive [address] [place] [address] [phone] Comp Metabolic 07/20/2015 [facility] Sodium 137 mmol/L N 133- [address] [place] [address] [phone] Potassium 4.1 mmol/L N 3.5-5.0 Chloride 104 mmol/L N 101-111 Co2 Carbon Dioxide 29 mmol/L N 22-32 Anion Gap 4 mmol/L N 2-11 Glucose 98 mg/dL N 70-100 Blood Urea Nitrogen 8 mg/dL N 6-24 Creatinine 0.72 mg/dL N 0.51-0.95 BUN/Creatinine Ratio 11.1 N 8-20 Calcium 9.6 mg/dL N 8.6-10.3 Total Protein 6.9 g/dL N 6.4-8.9 Albumin 4.5 g/dL N 3.2-5.2 Globulin 2.4 g/dL N 2-4 Albumin/Globulin Ratio 1.9 N 1-3 Total Bilirubin 0.30 mg/dL N 0.2-1.0 Alkaline Phosphatase 68 U/L N 34-104 Alt 19 U/L N 7-52 Ast 18 U/L N 13-39 Egfr Non- 89.3 N >60 Egfr 114.8 N >60 34 Laboratory 07/20/2015 [facility] Lyme Disease Negative N Negative 35 test finding [address] [place] [address] [phone] Hepatitis B 05/17/2015 [facility] Hepatitis B Nonreactive N Nonreactive Abraham AB Titer [address] [place] [address] [phone] Hep B Surf AB Level 3.20 mIU/mL N <12 36 Laboratory 05/17/2015 [facility] Hepatitis B Nonreactive N Nonreactive test finding [address] [place] [address] [phone] CBC Auto Diff 02/09/2015 [facility] White Blood 5.6 10^3/uL N 4.8-10.[address] [place] [address] [phone] Red Blood Count 4.14 10^6/uL N 4.0-5.4 Hemoglobin 12.2 g/dL N 12.0-16.0 Hematocrit 35 % N 35-47 Mean Corpuscular Volume 86 fL N 80-97 Mean Corpuscular Hemoglobin 30 pg N 27-31 Mean Corpuscular HGB Conc 34 g/dL N 31-36 Red Cell Distribution Width 13 % N 10.5-15 Platelet Count 252 10^3/uL N 150-450 Mean Platelet Volume 9 um3 N 7.4-10.4 Abs Neutrophils 3.4 10^3/uL N 1.5-7.7 Abs Lymphocytes 1.6 10^3/uL N 1.0-4.8 Abs Monocytes 0.4 10^3/uL N 0-0.8 Abs Eosinophils 0.1 10^3/uL N 0-0.6 Abs Basophils 0 10^3/uL N 0-0.2 Abs Nucleated RBC 0 10^3/uL N Granulocyte % 61.0 % N 38-83 Lymphocyte % 29.4 % N 25-47 Monocyte % 7.9 % N 1-9 Eosinophil % 1.1 % N 0-6 Basophil % 0.6 % N 0-2 Nucleated Red Blood Cells % 0.1 N Comp Metabolic Panel 02/09/2015 [facility] Sodium 136 mmol/L N 133-145 [address] [place] [address] [phone] Potassium 4.0 mmol/L N 3.5-5.0 Chloride 103 mmol/L N 101-111 Co2 Carbon Dioxide 27 mmol/L N 22-32 Anion Gap 6 mmol/L N 2-11 Glucose 103 mg/dL High 70-100 Blood Urea Nitrogen 10 mg/dL N 6-24 Creatinine 0.71 mg/dL N 0.51-0.95 BUN/Creatinine Ratio 14.1 N 8-20 Calcium 9.5 mg/dL N 8.6-10.3 Total Protein 6.9 g/dL N 6.4-8.9 Albumin 4.3 g/dL N 3.2-5.2 Globulin 2.6 g/dL N 2-4 Albumin/Globulin Ratio 1.7 N 1-3 Total Bilirubin 0.50 mg/dL N 0.2-1.0 Alkaline Phosphatase 47 U/L N 34-104 Alt 23 U/L N 7-52 Ast 25 U/L N 13-39 Egfr Non- 91.2 N >60 Egfr 117.3 N >60 37 Laboratory test 02/09/2015 [facility] Troponin I 0.00 ng/mL N <0.03 38 finding [address] [place] [address] [phone] Urinalysis Profile 01/05/2015 [facility] Urine Color Yellow N [address] [place] [address] [phone] Urine Appearance Cloudy N Urine Specific [place] 1.013 N 1.010-1.030 Urine pH 7.0 N 5-9 Urine Urobilinogen Negative N Negative Urine Ketones Negative N Negative Urine Protein Negative N Negative Urine Leukocytes Negative N Negative Urine Blood 1+ Abnormal Negative Urine Nitrite Negative N Negative Urine Bilirubin Negative N Negative Urine Glucose Negative N Negative Urine White Blood Cell Trace(0-5/hpf) N Absent Urine Red Blood Cell 3+(>10/hpf) Abnormal Absent Urine Bacteria Absent N Absent Urine Squamous Epithelial Cell Present Abnormal Absent Urine Culture And 01/05/2015 [facility] Urine Culture (SEE NOTE ) [address] [place] [address] [phone] Surgical Pathology 01/03/2015 [facility] S RUN DATE: [address] [place] [address] NOTE> [phone] Stone Analysis 01/03/2015 [facility] Kidney Stone Kidney N [address] [place] [address] [phone] Kidney Stone 1st Constituent See Comment N 41 Kidney Stone 2nd Constituent See Comment N 42 Ua Routine 12/24/2014 Counseling Case Manager In House Ua Specific [place] 1.030 Ua PH 5.0 Ua Color yellow Ua Appera cloudy Ua WBC mod Ua Protein 100++ Ua Glucose neg Ua Ketones neg Ua Bilirubin small Ua Urobilinogen neg Ua Nitrite neg Ua Occult Blood small Laboratory test finding 07/07/2014 C Reactive Protein < 0.10 mg/L N < 5.00 43 Erythrocyte Sed Rate 18 mm/Hr High 0-14 Vitamin D, 25 12/14/2013 [facility] 25-Hydroxy Vitamin <4.0 ng/ mL Hydroxy [address] [place] [address] [phone] 25-Hydroxy Vitamin D3 31 ng/mL 25-Hydroxy Vitamin D Total 31 ng/mL 44 Comp Metabolic Panel 12/14/2013 [facility] Sodium 138 mmol/L 133-[address] [place] [address] [phone] Potassium 4.3 mmol/L 3.7-5.6 Chloride 104 mmol/L 101-111 Co2 Carbon Dioxide 28 mmol/L 22-32 Anion Gap 6 mmol/L 2-11 Glucose 86 mg/dL 70-100 Blood Urea Nitrogen 8 mg/dL 6-24 Creatinine 0.70 mg/dL 0.51-0.95 BUN/Creatinine Ratio 11.4 8-20 Calcium 9.2 mg/dL 8.6-10.3 Total Protein 7.0 g/dL 6.4-8.9 Albumin 4.6 g/dL 3.2-5.2 Globulin 2.4 g/dL 2-4 Albumin/Globulin Ratio 1.9 1-3 Total Bilirubin 0.40 mg/dL 0.2-1.0 Alkaline Phosphatase 46 U/L 34-104 Alt 14 U/L 7-52 Ast 19 U/L 13-39 Egfr Non- 93.2 >60 Egfr 119.8 >60 45 Lipid Profile 12/14/2013 [facility] Triglycerides 71 mg/dL 46 (Trig/Chol/HDL) [address] [place] [address] [phone] Cholesterol 201 mg/dL 47 HDL Cholesterol 60.7 mg/dL 48 LDL Cholesterol 126 mg/dL 49 Vitamin D, 25 07/30/2013 [facility] 25-Hydroxy Vitamin <4.0 ng/ mL Hydroxy [address] [place] [address] [phone] 25-Hydroxy Vitamin D3 30 ng/mL 25-Hydroxy Vitamin D Total 30 ng/mL 50 Laboratory test 04/09/2013 [facility] Tryptase 4.1 ng/mL < 11.[address] [place] [address] [phone] Laboratory test 04/01/2013 [facility] Alternaria <0.35 kU/L [address] [place] [address] Allergen [phone] Kyrgyz Beech Tree IgE <0.35 kU/L 53 Aspergillus Fumigatus IgE <0.35 kU/L 54 [place] Maple IgE <0.35 kU/L 55 Cat Epithelium Allergen IgE <0.35 kU/L 56 Cladosporium herbarum IgE <0.35 kU/L 57 Crab Allergen IgE <0.35 kU/L 58 Dermatophagoides farinae IgE <0.35 kU/L 59 Dermatophagoides pteronyssinus <0.35 kU/L 60 Dog Dander Allergen IgE <0.35 kU/L 61 Kentucky Blue (March) Grass IgE <0.35 kU/L 62 Lobster Allergen IgE <0.35 kU/L 63 Common Ragweed (Short) Allerge 1.06 kU/L 64 Shrimp Allergen IgE <0.35 kU/L 65 Francis Grass Allergen IgE <0.35 kU/L 66 Immunoglobulin E 61.1 kU/L 67 Laboratory test 12/25/2012 [facility] Rheumatoid Factor <15 IU/ mL <15 [address] [place] [address] [phone] Flower (Anti-Nuclear AB) Screen Negative Negative Erythrocyte Sed Rate 21 mm/Hr High 0-14 CRP High Sensitivity 2.4 mg/L 69 Basic Metabolic Panel 12/04/2012 [facility] Sodium 139 mmol/L 133-[address] [place] [address] [phone] Potassium 3.8 mmol/L 3.5-5.0 Chloride 105 mmol/L 101-111 Co2 Carbon Dioxide 26.0 mmol/L 22-32 Anion Gap 8.0 mmol/L 2-11 Glucose 98 mg/dL 70-100 Blood Urea Nitrogen 9 mg/dL 6-24 Creatinine 0.90 mg/dL 0.50-1.40 BUN/Creatinine Ratio 10.0 8-20 Calcium 9.7 mg/dL 8.1-9.9 Egfr Non- 70.1 >60 Egfr 90.1 >60 70 Vitamin D, 25 11/25/2012 [facility] 25-Hydroxy Vitamin <4.0 ng/ mL Hydroxy [address] [place] [address] [phone] 25-Hydroxy Vitamin D3 34 ng/mL 25-Hydroxy Vitamin D Total 34 ng/mL 71 Liver Function 11/25/2012 [facility] Total Protein 7.2 g/dL 6.2-8.[address] [place] [address] [phone] Albumin 4.2 g/dL 3.6-5.4 Globulin 3.0 g/dL 2-4 Albumin/Globulin Ratio 1.4 1-3 Total Bilirubin 0.7 mg/dL 0.4-1.5 Direct Bilirubin 0.1 mg/dL 0.1-0.5 Indirect Bilirubin 0.6 mg/dL 0.3-1.0 Alkaline Phosphatase 52 U/L 30-110 Alt 15 U/L 14-54 Ast 20 U/L 12-42 Laboratory 09/18/2012 [facility] Cytology RUN DATE: [address] 09/19/ <[place] [address] NOTE> [phone] GC/Chlamydia 09/04/2012 [facility] GC/Chlamydia (SEE NOTE) 73 Amplified Rna [address] [place] [address] [phone] Affirm Vaginal 09/04/2012 [facility] Affirm (SEE NOTE) [address] [place] [address] Probe [phone] Laboratory 09/04/2012 [facility] Throat (SEE NOTE) [address] [place] [address] [phone] Laboratory 07/22/2012 [facility] Hepatitis C Nonreactive Nonreactive test finding [address] [place], [place] [phone] Hepatitis B Surface Antigen Nonreactive Nonreactive Transferrin 340 mg/dL 200 - 360 76 Iron & Iron Binding 07/22/2012 [facility] Iron 65 UG/ML 28- [address] [place] [address] [phone] Unsaturated Iron Binding 411 g/dL Total Iron Binding Capacity 476 g/dL High 250-450 Transferrin 339.7 % Iron Saturation 14 % Low 15-55 Laboratory test 07/22/2012 [facility] Anti Nuclear Negative Negative finding [address] [place] [address] Screen [phone] Ceruloplasmin 25.8 mg/dL 77 CBC Auto Diff 07/16/2012 [facility] White Blood 5.4 CUMM 4.8- 10.8 [address] [place] [address] [phone] Red Cell Count 4.32 CUMM 4.2-5.4 Hemoglobin 12.1 g/dL 12.0-16.0 Hematocrit 37 % 35-47 Mean Corpuscular Volume 85 um3 79-97 Mean Corpuscular Hemoglob 28 pg 27-31 Mean Corpuscular HGB Cone 33 g/dL 32-36 Redcell Distribution WDTH 14 % 10.5-15 Platelet Count 225 CUMM 150-450 Mean Platelet Volume 10.5 um3 High 7.4-10.4 Gran % 59.5 % 38-83 Lymph % 29.3 % 20-45 Mononuclear % 8.5 % 1-9 Eosinophil % 2.0 % 0-6 Basophil % 0.7 % 0-2 Abs Lymphs 1.6 1.0-4.8 Abs Mononuclear 0.5 0-0.8 Absolute Neutrophil Count 3.2 1.5-7.7 Abs Eosinophils 0.1 0-0.6 Abs Basophils 0 0-0.2 Comp Metabolic Panel 07/16/2012 [facility] Sodium 140 mmol/L 135-145 [address] [place] [address] [phone] Potassium 4.4 mmol/L 3.5-5.0 Chloride 104 mmol/L 101-111 Co2 (Carbon Dioxide) 29.0 mmol/L 22-32 Anion Gap 7.0 mmol/L 2-11 78 Glucose 107 mg/dL High 70-100 BUN 10 mg/dL 6-24 Creatinine 0.8 mg/dL 0.50-1.40 One Over Creatinine 1.25 BUN/Creatinine Ratio 12.5 8-20 Calcium 9.6 mg/dL 8.1-9.9 Total Protein 6.7 GM/DL 6.2-8.1 Albumin 4.0 GM/DL 3.6-5.4 Globulin 2.7 GM/DL 2-4 Albumin/Globulin Ratio 1.5 1-3 Bilirubin Total 0.4 mg/dL 0.4-1.5 79 Alkaline Phosphatase 62 U/L 30-110 Alt (SGPT) 21 U/L 14-54 Ast (Sgot) 22 U/L 12-42 eGFR Non- 80.7 > 60 eGFR 103.8 > 60 80 Vad 07/16/2012 [facility] Vad Final Nonreactive Nonreactive 81 [address] [place] [address] [phone] 1 Because ethnic data is not always readily available, this report includes an eGFR for both -Americans and non- Americans. The National Kidney Disease Education Program (NKDEP) does not endorse the use of the MDRD equation for patients that are not between the ages of 18 and 70, are , have extremes of body size, muscle mass, or nutritional status, or are non- or non-. According to the National Kidney Foundation, irrespective of diagnosis, the stage of the disease is based on the level of kidney function: Stage Description GFR(mL/min/1.73 m(2)) 1 Kidney damage with normal or decreased GFR 90 2 Kidney damage with mild decrease in GFR 60-89 3 Moderate decrease in GFR 30-59 4 Severe decrease in GFR 15-29 5 Kidney failure <15 (or dialysis) 2 Normal Range 180 to 914 Indeterminate Range 145 to 180 Deficient Range <145 3 Please check this week 4 REFERENCE VALUE Not Applicable 5 RESULT: HLA-B27 antigen was not detected. ADDITIONAL INFORMATION Method: Flow Cytometry Performing Laboratory CLIA# [id number] Test Performed by: [place] [address] [employer]: David Bledsoe II, M.D., Ph.D. 6 Please check this week 7 Acute inflammation: >10.00 8 Please check this week 9 ADDITIONAL INFORMATION This test was developed and its performance characteristics determined by [facility] in a manner consistent with CLIA requirements. This test has not been cleared or approved by the U.S. Food and Drug Administration. Test Performed by: [place] [address] [employer] Technician [employer]: David Bledsoe II, M.D., Ph.D. 10 Test Performed by: [facility] [place] [address] [employer]: David Bledsoe II, M.D., Ph.D. 11 REFERENCE VALUE <4.0 (Negative) Test Performed by: [place] [address] [employer]: David Bledsoe II, M.D., Ph.D. 12 Negative serology. Celiac disease unlikely. However, approximately 10% of patients with celiac disease are seronegative. Also, patients who are already adhering to a gluten-free diet may be seronegative. If celiac disease is highly clinically suspected, consider HLA-DQ typing. Test Performed by: [place] [address] [employer]: David Bledsoe II, M.D., Ph.D. 13 Please check this week 14 Normal values may vary with age, season and geographic area. Titers above upper limits may be indicative of infection, however only a two dilution rise in titer is required to be considered significant. ASO titer will usually rise above upper limits within one week of exposure, increase to peak levels at 3-5 weeks and return to baseline level at 6-12 twelve months. 15 Negative for cANCA and pANCA patterns by immunofluorescence. ADDITIONAL INFORMATION This test was developed and its performance characteristics determined by [facility] in a manner consistent with CLIA requirements. This test has not been cleared or approved by the U.S. Food and Drug Administration. Test Performed by: [place] [address] [employer]: David Bledsoe II, M.D., Ph.D. 16 Serologic response to B. burgdorferi infection is not detected, but cannot rule out early infection during which low or undetectable antibody levels to B. burgdorferi may be present. If clinically indicated, a new serum specimen should be submitted in 7-14 days. Test Performed by: [place] [address] [employer]: David Bledsoe II, M.D., Ph.D. 17 RESULT: No apparent monoclonal protein on serum electrophoresis. Test Performed by: [place] [address] [employer] Technician [employer]: David Bledsoe II, M.D., Ph.D. 18 Test Performed by: [place] [address] [employer]: David Bledsoe II, M.D., Ph.D. 19 Please check this week 20 ADDITIONAL INFORMATION The thyroglobulin antibody testing method is an immunoenzymatic assay manufactured by [employer] and performed on the BioDerm DXI 800. Values obtained from different assay methods or kits may be different and cannot be used interchangeably. The results cannot be interpreted as absolute evidence for the presence or absence of malignant disease. Test Performed by: [facility] [place] [address] [employer]: David Bledsoe II, M.D., Ph.D. 21 Please check this week Please check this week Please check this week REFERENCE VALUE <1.0 (Negative) 25 REFERENCE VALUE <1.0 (Negative) Test Performed by: [facility] [place] [address] [employer]: David Bledsoe II, M.D., Ph.D. 26 SEE RESULT BELOW Name: CAT ISAACS : [address]: Prateek Harris MD Acct: [id number] Unit: [id number] AGE: 40 Location: ENDO Re04/17/16 SEX: F Status: REG REF SPEC: [id number] ALEXI: 04/17/16-[address] [facility] [address]: Prateek Harris MD REQ: [id number] RECD: 04/17/16 STATUS: ALBERT BROWN DR: Delilah Olvera MD _ SOURCE: [facility]: ORDERED: Clotest Procedure Result Reported Site Clotest Final 04/18/16- 0756 ML Clotest Negative * ML - MAIN LAB ([facility]) . END OF REPORT * ML=Testing performed at Main Lab DEPARTMENT OF PATHOLOGY, [address] [place] [address] Marcin Reece M.D. Director [facility] # [id number] 27 SEE RESULT BELOW Name: CAT ISAACS : [address]: Prateek Harris MD Acct: [id number] Unit: [id number] AGE: 40 Location: ENDO Re04/17/16 SEX: F Status: REG REF SPEC: [id number] ALEXI: 04/17/16-[address]: Prateek Harris MD REQ: [id number] RECD: 04/17/16-153 STATUS: YOAV BROWN DR: Delilah Olvera MD _ ORDERED: LEVEL IV/3 FINAL DIAGNOSIS 1. Duodenum, third portion, biopsy: -- Benign small intestinal mucosa with no significant pathologic abnormalities. -- No evidence of villous blunting or increased intraepithelial lymphocytes. 2. Stomach, antrum, biopsy: -- Fundic gland polyp. 3. Stomach, body, biopsy: -- Fundic gland polyp. CLINICAL HISTORY Epigastric pain - hurts to breathe or hold breath. Zantac , Prilosec, several years long time subtle pressure, bending also hurts, pressure or remote. Bloating too will increase it, can be constant - two other pains come and go, self Rx - magic Meal Topical oil, ibuprofen, tramadol for everything. Ultrasound negative. Two doctors, IBS constipation ten years. POST-OPERATIVE DIAGNOSIS EGD, larynx symmetric, Esophagus - normal EG 40 normal, Stomach - LLO, two nodules, all normal, Duodenum - normal, biopsy x 2 3rd. Conclusions/Plan: 1. Normal EGD, 2. Diminutive nodules, 3. Epigastric pain. GROSS DESCRIPTION 1. The specimen is received in formalin labeled, Biopsy Third Portion Duodenum, and consists of a 1.1 x 0.3 I0.2 cm aggregate of preciado-pink irregular to polypoid soft tissue fragments, which is entirely submitted in one cassette. 2. The specimen is received in formalin labeled, Biopsy Gastric Antral Polyp, and consists of a 0.4 x 0.3 x 0.2 cm preciado-pink polypoid soft tissue fragment, which is entirely submitted CONTINUED ON NEXT PAGE * ML=Testing performed at Main Lab DEPARTMENT OF PATHOLOGY, [address] [place] [address] Marcin Reece M.D. Director [facility] # [id number] RUN DATE: 04/18/16 [facility] LAB LIVE PAGE 2 Patient: CAT ISAACS [id number] (Continued) GROSS DESCRIPTION (Continued) GROSS DESCRIPTION (Continued) in one cassette. 3. The specimen is received in formalin labeled, Biopsy Gastric Body Polyp , and consists of a 0.5 x 0.2 x 0.2 cm preciado-pink polypoid soft tissue fragment, which is entirely submitted in one cassette. Signed (signature on file) Elvie Valladares MD 1534 END OF REPORT * ML=Testing performed at [facility] DEPARTMENT OF PATHOLOGY, [address] [place] [address] Marcin Reece M.D. Director [facility] # [id number] 28 Normal Range 180 to 914 Indeterminate Range 145 to 180 Deficient Range <145 29 REFERENCE VALUE <=1.0 (Negative) 30 REFERENCE VALUE <20.0 (Negative) 31 Tests for antibodies to dsDNA and LEODAN antigens are not performed automatically unless the FLOWER result is > or= 3.0 U. Studies performed at [facility] indicate that positive FLOWER results <3.0 U are rarely accompanied by positive second order tests. Test Performed by: [facility] [place] [address] Quality Technician [employer]: David Bledsoe II, M.D., Ph.D. 32 Normal Range 180 to 914 Indeterminate Range 145 to 180 Deficient Range <145 33 It is recognized that currently available assays for the detection of antibodies to HIV-1 and/or HIV-2 may not detect all infected individuals. HIV antibodies may be undetectable in some stages of the infection and in some clinical conditions. The performance of this assay has not been established for populations of infants or children. Assayed by Chemiluminescence Microparticle Immunoassay on the Siemens Advia Centaur CP. Values obtained with different methods or kits cannot be used interchangeably.The diagnostic specificity of the ADVIA Centaur 1/O/2 Enhanced assay in the low risk population was 99.90% (6052/6058) with a 95% confidence interval of 99.78 to 99.96%. 34 Because ethnic data is not always readily available, this report includes an eGFR for both -Americans and non- Americans. The National Kidney Disease Education Program (NKDEP) does not endorse the use of the MDRD equation for patients that are not between the ages of 18 and 70, are , have extremes of body size, muscle mass, or nutritional status, or are non- or non-. According to the National Kidney Foundation, irrespective of diagnosis, the stage of the disease is based on the level of kidney function: Stage Description GFR(mL/min/1.73 m(2)) 1 Kidney damage with normal or decreased GFR 90 2 Kidney damage with mild decrease in GFR 60-89 3 Moderate decrease in GFR 30-59 4 Severe decrease in GFR 15-29 5 Kidney failure <15 (or dialysis) 35 Serologic response to B. burgdorferi infection is not detected, but cannot rule out early infection during which low or undetectable antibody levels to B. burgdorferi may be present. If clinically indicated, a new serum specimen should be submitted in 7-14 days. Test Performed by: [place] [address] Quality Technician [employer]: David Bledsoe II, M.D., Ph.D. 36 This assay does not differentiate between reactivity due to a vaccine-induced immune response or an immune response induced by infection with HBV. 37 Because ethnic data is not always readily available, this report includes an eGFR for both -Americans and non- Americans. The National Kidney Disease Education Program (NKDEP) does not endorse the use of the MDRD equation for patients that are not between the ages of 18 and 70, are , have extremes of body size, muscle mass, or nutritional status, or are non- or non-. According to the National Kidney Foundation, irrespective of diagnosis, the stage of the disease is based on the level of kidney function: Stage Description GFR(mL/min/1.73 m(2)) 1 Kidney damage with normal or decreased GFR 90 2 Kidney damage with mild decrease in GFR 60-89 3 Moderate decrease in GFR 30-59 4 Severe decrease in GFR 15-29 5 Kidney failure <15 (or dialysis) 38 Reference Range and Interpretation: TnI (ng/mL) Interpretation Less Than 0.03 ng/mL Not supportive of diagnosis of PA 0.03 - 0.50 ng/mL Indeterminate: suggest serial studies if clinically indicated. Greater than 0.5 ng/mL Consistent with diagnosis of PA 39 RUN DATE: 01/08/15 [facility] LAB LIVE PAGE 1 RUN TIME: [address] [place] [address] Specimen Inquiry Name: CAT ISAACS : [address]: Delilah Olvera MD Acct: [id number] Unit: [id number] AGE: 39 Location: LAB Re01/05/15 SEX: F Status: REG REF SPEC: [id number] ALEXI: 01/05/15-[address]: Delilah Olvera MD REQ: [id number] RECD: 01/05/15-1728 STATUS: COMP _ SOURCE: URINE SPDESC: ORDERED: Urine Culture QUERIES: Provider Requisition # [id number] Procedure Result Verified Site Urine Culture Final 01/08/15- 0930 ML Organism 1 STREP GROUP B [place] Count 1-10,000 (Few) CFU/ML Susceptibility testing of penicillins and other B-lactams approved by FDA for treatment of Streptococcus pyogenes (Group A Strep) and Streptococcus agalactiae (Group B Strep) is not necessary for clinical purposes and need not be done routinely, since as with vancomycin, resistant strains have not been recognized. (CLSI A176-L68;p.66) Positive isolates will be saved for one week. Please call the Microbiology Laboratory if further susceptibility testing is needed. * ML - MAIN LAB ([facility]) . Marcin Russell M.D. END OF REPORT * ML=Testing performed at Main Lab DEPARTMENT OF PATHOLOGY, [facility] [employer] [place], [place] [address] Marcin Reece M.D. Director [facility] # [id number] 40 RUN DATE: 01/07/15 [facility] LAB LIVE PAGE 1 RUN TIME: [address] [place] [address] Specimen Inquiry Name: CAT ISAACS : [address]: Delilah Olvera MD Acct: [id number] Unit: [id number] AGE: 39 Location: LAB Re01/05/15 SEX: F Status: REG REF SPEC: [id number] ALEXI: 01/03/15-[address]: Delilah Olvera MD REQ: [id number] RECD: 01/05/15 STATUS: SOUT _ ORDERED: LEVEL I FINAL DIAGNOSIS Lithotomy, site not specified: Calculus (Gross diagnosis). PRE-OPERATIVE DIAGNOSIS 592.9 GROSS DESCRIPTION The specimen is received in formalin with no source identified and a requisition labeled, Stone Analysis, and consists of a 0.3 x 0.2 x 0.2 cm preciado-brown ovoid, hard calculus consistent with a renal calculus. The specimen is submitted for chemical analysis. Per established hospital medical staff protocol, no tissue is submitted. Gross only. Signed (signature on file) Elvie Valladares MD 1129 END OF REPORT * ML=Testing performed at Main Lab DEPARTMENT OF PATHOLOGY, [address] [place] [address] Marcin Reece M.D. Director [facility] # [id number] 41 RESULT: 90% Calcium phosphate (apatite) 42 RESULT: 10% Calcium oxalate monohydrate Test Performed by: [place] [address] Quality Technician [employer]erglass: David Bledsoe II, M.D., Ph.D. 43 Acute inflammation: >10.00 44 -- REFERENCE VALUE -- 25-HYDROXY D TOTAL (D2+D3) Optimum levels in the healthy population are 20-50, patients with bone disease may benefit from higher levels within this range. Test Performed by: [place] [address] Quality Technician Fiberglass: Virgil Espinoza III, M.D. 45 Because ethnic data is not always readily available, this report includes an eGFR for both -Americans and non- Americans. The National Kidney Disease Education Program (NKDEP) does not endorse the use of the MDRD equation for patients that are not between the ages of 18 and 70, are , have extremes of body size, muscle mass, or nutritional status, or are non- or non-. According to the National Kidney Foundation, irrespective of diagnosis, the stage of the disease is based on the level of kidney function: Stage Description GFR(mL/min/1.73 m(2)) 1 Kidney damage with normal or decreased GFR 90 2 Kidney damage with mild decrease in GFR 60-89 3 Moderate decrease in GFR 30-59 4 Severe decrease in GFR 15-29 5 Kidney failure <15 (or dialysis) 46 Desirable <150 Borderline high 150-199 High 200-499 Very High >500 47 Desirable <200 Borderline high 200-239 High >239 48 Low <40 Desirable: 40-60 High: >60 49 Desirable <100 Near Optimal 100-129 Borderline high 130-159 High 160-189 Very High >189 50 -- REFERENCE VALUE -- 25-HYDROXY D TOTAL (D2+D3) Optimum levels in the healthy population are 20-50, patients with bone disease may benefit from higher levels within this range. Test Performed by: [place] [address] Quality Technician [employer]erglass: Virgil Espinoza III, M.D. 51 Test Performed by: [address] [address] Quality Technician Fiberglass: Virgil Espinoza III, M.D. 52 Class 0 (Negative <0.35) Test Performed by: [place] [address] Quality Technician [employer]erg[employer]: Virgil Espinoza III, M.D. 53 Class 0 (Negative <0.35) Test Performed by: [place] [address] Quality Technician [employer]erg[employer]: Virgil Espinoza III, M.D. 54 Class 0 (Negative <0.35) Test Performed by: [place] [address] Quality Technician [employer]erg[employer]: Virgil Espinoza III, M.D. 55 Class 0 (Negative <0.35) Test Performed by: [place] [address] Quality Technician Fiberglass: Virgil Espinoza III, M.D. 56 Class 0 (Negative <0.35) Test Performed by: [address] [address] Quality Technician Fiberglass: Virgil Espinoza III, M.D. 57 Class 0 (Negative <0.35) Test Performed by: [place] [address] Quality Technician Fiberglass: Virgil Espinoza III, M.D. 58 Class 0 (Negative <0.35) Test Performed by: [address] [address] Quality Technician Fiberglass: Virgil Espinoza III, M.D. 59 Class 0 (Negative <0.35) Test Performed by: [address] [address] Quality Technician Fiberglass: Virgil Espinoza III, M.D. 60 Class 0 (Negative <0.35) Test Performed by: [address] [address] Quality Technician Fiberglass: Virgil Espinoza III, M.D. 61 Class 0 (Negative <0.35) Test Performed by: [place] [address] Quality Technician Fiberglass: Virgil Espinoza III, M.D. 62 Class 0 (Negative <0.35) Test Performed by: [place] [address] Quality Technician Fiberglass: Virgil Espinoza III, M.D. 63 Class 0 (Negative <0.35) Test Performed by: [place] [address] Quality Technician Fiberglass: Virgil Espinoza III, M.D. 64 Class 2 (Positive 0.70-3.49) Test Performed by: [place] [address] Quality Technician Fiberglass: Virgil Espinoza III, M.D. 65 Class 0 (Negative <0.35) Test Performed by: [place] [address] Quality Technician Fiberglass: Virgil Espinoza III, M.D. 66 Class 0 (Negative <0.35) Test Performed by: [place] [address] Quality Technician Fiberglass: Virgil Espinoza III, M.D. 67 -- REFERENCE VALUE -- Mean 13.2 +1SD 41.0 +2SD 127.0 Test Performed by: [place] [address] Quality Technician Fiberglass: Virgil Espinoza III, M.D. 68 Test Performed by: [place] [address] Quality Technician Fiberglass: Virgil Espinoza III, M.D. 69 Less Than 1.0......Low Risk of Cardiovascular Disease 1.0-3.0............Medium Risk (<2 Fold Increase) Greater Than 3.0...High Risk (Approximately 2-Fold Increase) 70 Because ethnic data is not always readily available, this report includes an eGFR for both -Americans and non- Americans. The National Kidney Disease Education Program (NKDEP) does not endorse the use of the MDRD equation for patients that are not between the ages of 18 and 70, are , have extremes of body size, muscle mass, or nutritional status, or are non- or non-. According to the National Kidney Foundation, irrespective of diagnosis, the stage of the disease is based on the level of kidney function: Stage Description GFR(mL/min/1.73 m(2)) 1 Kidney damage with normal or decreased GFR 90 2 Kidney damage with mild decrease in GFR 60-89 3 Moderate decrease in GFR 30-59 4 Severe decrease in GFR 15-29 5 Kidney failure <15 (or dialysis) 71 -- REFERENCE VALUE -- 25-HYDROXY D TOTAL (D2+D3) Optimum levels in the normal population are 25-80 Test Performed by: [address] [address] Quality Technician Fiberglass: Virgil Espinoza III, M.D. 72 RUN DATE: 09/19/12 [facility] LAB LIVE PAGE 1 RUN TIME: [address] [place] [address] Specimen Inquiry Name: CAT ISAACS Sukhjinder : [address]: Delilah Olvera MD Acct: [id number] Unit: [id number] AGE: 37 Location: [facility] Re09/18/12 SEX: F Status: REG REF SPEC: [id number] ALEXI: 09/18/12-[address]: Bruno Olvera MDaira REQ: [id number] RECD: 09/19/12 STATUS: SOUT _ ORDERED: IMAGE ANALYSIS, PAP SM PATH REV Please repeat A. Ectocervical/Endocervical Specimen Adequacy: Unsatisfactory for evaluation Insufficient epithelial component Patient Information: HPV: Thin Layer Pap Test w/reflex to high risk HPV DNA testing when ASCUS Actual Specimen Date: 09/18/12 Last Menstrual Date: 09/04/12 IUD: Y Previous Abnormal Pap Smears?:N Signed (signature on file) Marcin Reece MD [id number] This Pap test was evaluated with the assistance of the [employer] Test Imaging System. Due to cytologic findings at the restaurant service manager microscope, comprehensive manual rescreening by a Drafter (Cad) Electronic may be required. The Pap Smear is a screening test designed to aid in the detection of premalignant and malignant conditions of the uterine cervix. It is not a diagnostic procedure and should not be used as the sole means of detecting cervical cancer. Both false- positive and false- negative reports do occur. Depending on your risk status, a Pap smear shoudl be obtained and evaluated every 1-3 years. END OF REPORT * ML=Testing performed at Main Lab DEPARTMENT OF PATHOLOGY, [facility] [employer] [place], [place] [address] Marcin Reece M.D. Director [facility] Permit #[id number] RUN DATE: 09/05/12 [facility] LAB LIVE PAGE 1 RUN TIME: [address] [employer] [place], [place] [address] Specimen Inquiry Name: CAT ISAACS Sukhjinder : [address]: Delilah Olvera MD Acct: [id number] Unit: [id number] AGE: 37 Location: [facility] Re09/04/12 SEX: F Status: REG REF SPEC: [id number] ALEXI: 09/04/12-[address]: Delilah Olvera MD REQ: [id number] RECD: 09/04/12 STATUS: COMP _ SOURCE: ENDOCERVIX SPDESC: ORDERED: GC/Chlam RNA QUERIES: Medent Number [id number] Procedure Result Verified Site Chlamydia Trachomatis RNA Final 09/05/12- 1459 ML NEGATIVE for Chlamydia trachomatis rRNA GC (N. gonorrhoeae) RNA Final 09/05/12- 1459 ML NEGATIVE for Neisseria gonorrhoeae rRNA A negative result does not preclude the presence of a C. trachomatis or N. gonorrhoeae infection because results are dependent on adequate specimen collection, absence of inhibitors, and sufficient rRNA to be detected. Test results may be affected by improper specimen collection, improper storage, technical error, or specimen mixup. Limitations of the Procedure: The Aptima Combo 2 Assay is not intended for the evaluation of suspected sexual abuse or for other medico-legal indications. For those patients for whom a false positive result may have adverse psychosocial impact, the [facility] recommends retesting by a method using an alternate technology. Therapeutic failure or success cannot be determined with the Aptima Combo 2 Assay since nucleic acid may persist following appropriate antimicrobial therapy. Results from the Aptima Combo 2 Assay should be interpreted in conjunction with other laboratory and clinical data available to the clinican. CONTINUED ON NEXT PAGE * ML=Testing performed at Main Lab DEPARTMENT OF PATHOLOGY, [facility] [employer] [place], [place] [address] Marcin Reece M.D. Director [facility] Permit #[id number] RUN DATE: 09/05/12 [facility] LAB LIVE PAGE 2 RUN TIME: [address] [place], [place] [address] Specimen Inquiry Patient: CAT ISAACS [id number] (Continued) Specimen: [id number] Collected: 09/04/12 Received: 09/04/12 (Continued) Procedure Result Verified Site GC (N. gonorrhoeae) RNA Final (continued) 09/05/12- 0226 Performance characteristics for detecting C. trachomatis and N. gonorrhoeae are derived from high prevalence populations. Positive results in low prevalence populations should be interpreted carefully with the understanding that the likelihood of a false positive may be higher than a true positive. END OF REPORT * ML=Testing performed at Main Lab DEPARTMENT OF PATHOLOGY, [address] [place] [address] Marcin Reece M.D. Director [facility] Permit #[id number] RUN DATE: 09/05/12 [facility] LAB LIVE PAGE 1 RUN TIME: 3797 [address] [place], [place] [address] Specimen Inquiry Name: CAT ISAACS : [address]: Delilah Olvera MD Acct: [id number] Unit: [id number] AGE: 37 Location: [facility] Re09/04/12 SEX: F Status: REG REF SPEC: [id number] ALEXI: 09/04/12-[address]: Delilah Olvera MD REQ: [id number] RECD: 09/04/12 STATUS: COMP _ SOURCE: VAGINAL SPDESC: ORDERED: Affirm QUERIES: Medent Number [id number] Procedure Result Verified Site Affirm Vaginal DNA Probe Final 09/05/12- 1505 ML Trichomonas Negative Gardnerella Positive Be[place] Negative The presence of G. vaginalis, although suggestive, is not diagnostic for bacterial vaginosis. Results should be interpreted in conjunction with other clinical and laboratory data available. Women with vaginal discharge should be evaluated for risk factors of cervicitis and pelvic inflammatory disease, toxic shock syndrome (S.aureus), and if present, evaluated for organisms not included in this assay such as N. gonorrhoeae, C. trachomatis, Mobiluncus, Mycoplasma and/or Prevotella. Mixed infections may occur. The performance of this test on patient specimens collected during or immediately after antimicrobial therapy is unknown. The presence or absence of [place] species, G. vaginalis or T. vaginalis cannot be used as a test for therapeutic success or failure. END OF REPORT * ML=Testing performed at Main Lab DEPARTMENT OF PATHOLOGY, [facility] [employer] [place], [place] [address] Marcin Reece M.D. Director [facility] Permit #[id number] RUN DATE: 09/06/12 [facility] LAB LIVE PAGE 1 RUN TIME: 0273 [facility] [employer] [place], [place] [address] Specimen Inquiry Name: SHITALCAT Sukhjinder : [address]: Delilah Olvera MD Acct: [id number] Unit: [id number] AGE: 37 Location: [facility] Re09/04/12 SEX: F Status: REG REF SPEC: [id number] ALEXI: 09/04/12-[address] [facility] [address]: Delilah Olvera MD REQ: [id number] RECD: 09/04/12 STATUS: COMP _ SOURCE: THROAT SPDESC: ORDERED: Throat Culture QUERIES: Medent Number [id number] Procedure Result Verified Site Throat Culture Final 09/06/12- 1213 ML Organism 1 STREP GROUP A Quantity 1+ Organism 2 NORMAL SHADI Quantity 3+ Throat cultures are clinically indicated to detect the presence of group A strep, arcanobacterium and yeast. END OF REPORT * ML=Testing performed at Main Lab DEPARTMENT OF PATHOLOGY, [address] [place] [address] Marcin Reece M.D. Director [facility] Permit #[id number] Test Performed by: [address] [address] Quality Technician Fiberglass: Virgil Espinoza III, M.D. R 77 -- REFERENCE VALUE -- 16.0 - 45.0 Test Performed by: [address] [address] Quality Technician Fiberglass: Virgil Espinoza III, M.D. R 78 Anion gap measurement may be of limited value in the presence of any alkalosis, especially in a combined acid base disorder. . 79 A metabolite of Naproxen, O-desmethylnaproxen, has been shown to interfere with the [place] method for measuring total bilirubin. Samples from patients who have taken Naproxen have shown spurious elevation in total bilirubin levels. 80 Because ethnic data is not always readily available, this report includes an eGFR for both -Americans and non- Americans. The National Kidney Disease Education Program (NKDEP) does not endorse the use of the MDRD equation for patients that are not between the ages of 18 and 70, are , have extremes of body size, muscle mass, or nutritional status, or are non- or non-. According to the National Kidney Foundation, irrespective of diagnosis, the stage of the disease is based on the level of kidney function: Stage Description GFR(mL/min/1.73 m(2)) 1 Kidney damage with normal or decreased GFR 90 2 Kidney damage with mild decrease in GFR 60-89 3 Moderate decrease in GFR 30-59 4 Severe decrease in GFR 15-29 5 Kidney failure <15 (or dialysis) 81 It is recognized that currently available assays for the detection of antibodies to HIV-1 and/or HIV-2 may not detect all infected individuals. HIV antibodies may be undetectable in some stages of the infection and in some clinical conditions. The performance of this assay has not been established for populations of infants or children. Assayed by Chemiluminescence Microparticle Immunoassay on the Elisa Advia Centaur CP. Values obtained with different methods or kits cannot be used interchangeably.The diagnostic specificity of the ADVIA Centaur 1/O/2 Enhanced assay in the low risk population was 99.90% (6052/6058) with a 95% confidence interval of 99.78 to 99.96%. Procedures Date Code Description Status 06/04/2017 [id number] Mammogram Completed 08/17/2015 32247 Nerve Conduction 03-04 Studies Completed 08/17/2015 65118 Needle Electromyography Complete, Five Or More Muscles Completed Studied 03/22/2015 [id number] Mammogram Completed 03/21/2009 [id number] Mammogram Completed Encounters Type Date Location Provider Dx Diagnosis Office Visit 04/24/2018 Counseling Case Manager Internal Delilah Olvera, R10.819 Abdominal 1:00p Medicine Glenn Nur tenderness, [place] unspecified site Office Visit 03/06/2018 Joseph Internal Delilah Olvera, R10.819 Abdominal 12:10p Medicine - M.DHeydi tenderness, [place] unspecified site E83.42 Hypomagnesemia Office Visit 01/02/2018 12:10p Counseling Case Manager Internal Delilah Olvera, R25.2 Cramp and Medicine - MJose spasm [place] M54.5 Low back pain M54.89 Other dorsalgia M25.551 Pain in right hip M25.552 Pain in left hip Office Visit 11/28/2017 3:20p Counseling Case Manager Internal Blaine Melchor J06.9 Acute upper Santo Hernandez M.D. respiratory [place] infection, unspecified Office Visit 10/08/2017 12:10p Counseling Case Manager Internal Delilah S76.112A Strain of left Santo Olvera M.D. 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 [place] M40.56 Lordosis, unspecified, lumbar region R10.13 Epigastric pain G47.00 Insomnia, unspecified Office Visit 05/09/2017 3:40p [facility] Internal Quique Miller, R21 Rash and other Medicine - ASPHALT SPREADER OPERATOR nonspecific skin [place] eruption Office Visit 04/03/2017 10:40a [facility] Internal Quique Miller, S40.862A Insect bite Medicine - ASPHALT SPREADER OPERATOR (nonvenomous) of [place] left upper arm, init encntr L03.114 Cellulitis of left upper limb Office Visit 12/19/2016 Rheumatology Ector M47.812 Spondylosis w/o 1:20p Services Of [facility] Harper M.D. myelopathy or radiculopathy, cervical region E53.9 Vitamin B deficiency, unspecified R20.8 Other disturbances of skin sensation M54.5 Low back pain Office Visit 12/10/2016 Rheumatology Ector M47.812 Spondylosis w/o 4:00p Services Of [place] Harper M.D. myelopathy or radiculopathy, cervical region M06.4 Inflammatory polyarthropathy R20.8 Other disturbances of skin sensation E53.9 Vitamin B deficiency, unspecified M54.5 Low back pain E55.9 Vitamin D deficiency, unspecified Office Visit 10/31/2016 Neurosurgery Nick M47.812 Spondylosis w/o 1:30p Services Of [place] Salcido M.D. myelopathy or radiculopathy, cervical region Office Visit 10/23/2016 [facility] Internal Jc J06.9 Acute upper 4:20p Santo Guerra M.D. respiratory [place] infection, unspecified Office Visit 09/17/2016 Neurosurgery Nick M50.123 Cervical disc 3:15p Services Of [facility] Salcido M.D. disorder at C6-C7 level with radiculopathy Office Visit 09/12/2016 [facility] Internal Delilah M50.122 Cervical disc 2:20p Santo Olvera M.D. disorder at C5-C6 [place] level with radiculopathy G47.09 Other insomnia Office Visit 06/05/2016 4:00p [facility] Internal Adam Gomez, B30.9 Viral conjunctivitis, Medicine - ASPHALT SPREADER OPERATOR unspecified [address] H10.9 Unspecified conjunctivitis Office Visit 05/16/2016 12:10p [facility] Internal Delilah Olvera, H92.02 Otalgia , left Santo Elizabeth M.D. ear Juan Jose K58.9 Irritable bowel syndrome without diarrhea Office Visit 02/29/2016 1:40p [facility] Internal Delilah M94.0 Chondrocostal Santo Olvera M.D. junction syndrome Juan Jose [Tietze] R10.13 Epigastric pain R20.2 Paresthesia of skin Office Visit 01/03/2016 [facility] Internal Mario J01.90 Acute sinusitis, 2:20p Medicine - Tbdeangelo Renner M.D. unspecified Rd Office Visit 10/27/2015 Neurosurgery Nick Salcido, M50.12 Cervical disc 9:45a Services Of Joseph Nur disorder w radiculopathy, mid-cervical region Office Visit 09/22/2015 [facility] Internal Delilah Olvera M79.7 Fibromyalgia 12:10p Medicine Glenn Ingram E55.9 Vitamin D deficiency, unspecified G47.00 Insomnia, unspecified Z23 Encounter for immunization Office Visit 08/22/2015 11:10a [facility] Internal Delilah Olvera, G89.29 Other chronic Medicine - Boom pain [place] M79.7 Fibromyalgia W46.0xxA Contact with hypodermic needle, initial encounter R20.9 Unspecified disturbances of skin sensation E55.9 Vitamin D deficiency, unspecified Office Visit 07/25/2015 Neurosurgery Nick Salcido, M50.22 Other cervical 3:15p Services Of Joseph Nur disc displacement, mid-cervical region Office Visit 07/20/2015 [facility] Internal Delilah G89.29 Other chronic pain 11:50a Bo[place] Hoffman M25.50 Pain in unspecified joint M79.7 Fibromyalgia V04.81 Need For Prophylactic Vaccination & Inoculation/Influenza Z23 Encounter for immunization Office Visit 07/07/2015 Neurosurgery Nick Salcido, 722.0 Intervertebral Disc 3:30p Services Of [facility] Nur Displacement Cervical W/O Myelopathy Office Visit 06/16/2015 [facility] Internal Delilah 723.1 Cervicalgia 11:50a Santo Olvera M.D. [place] 782.0 Skin Sensation Disturbance V76.43 Screening Malignant Neoplasm Skin 729.5 Pain In Limb Office Visit 02/14/2015 11:50a [facility] Internal Delilah Olvera, 840.8 Sprains & Medicine - M.D. Strains Shoulder [place] & Upper Arm Other Spec Sites 723.1 Cervicalgia 847.0 Sprains & Strains Neck 782.0 Skin Sensation Disturbance Office Visit 02/11/2015 11:20a [facility] Internal Josefa Lima, 840.8 Sprains & Medicine - MHeydiDHeydi Strains Shoulder [place] & Upper Arm Other Spec Sites Office Visit 02/09/2015 11:50a [facility] Internal Delilah 786.05 Shortness Of Santo Olvera M.D. Breath [place] 786.50 Pain Chest Unspec 726.19 Shoulder Disorders Other Spec V45.89 Postsurgical Status Other 719.41 Pain Joint Shoulder Region Office Visit 01/19/2015 10:50a [facility] Internal Delilah Olvera, 592.9 Calculus Urinary Medicine - M.D. Unspec [place] 787.1 Heartburn 591 Hydronephrosis Office Visit 01/05/2015 10:50a [facility] Internal Delilah Olvera, 592.9 Calculus Urinary Medicine - M.D. Unspec [place] 626.4 Irregular Menstrual Cycle Office Visit 12/24/2014 4:00p [facility] Internal Medicine Glenn Gomez, ELIER 788.[address] 599.0 UTI Urinary Tract Infection Site Not Spec 787.02 Nausea Alone Office Visit 09/21/2014 3:40p [facility] Internal Mario Renner, 682.8 Cellulitis & Medicine - M.D. Abscess Other [place] Spec Sites 943.01 Burn Forearm Unspec Deg Office Visit 07/27/2014 9:30a [facility] Internal Medicine Delilah Olvera M.D. 786.2 Cough - [place] 465.9 URI Upper Respiratory Infections Acute Unspec Sites Office Visit 07/07/2014 11:00a [facility] Internal Angela Santiago, 729.1 Myalgia & Medicine - JUDICIAL ASSISTANT Myositis Unspec [place] 784.0 Headache 723.1 Cervicalgia 536.8 Stomach Dyspepsia & Other Spec Disorders Of Function Office Visit 05/11/2014 9:50a [facility] Internal Delilah Olvera, 723.1 Cervicalgia Santo Elizabeth M.D. [place] 477.9 Rhinitis Allergic Cause Unspec Office Visit 02/10/2014 11:50a [facility] Internal Delilah V70.0 Examination Santo Olvera M.D. [facility] Routine AT [facility] Care Facility 536.8 Stomach Dyspepsia & Other Spec Disorders Of Function 564.1 Irritable Bowel Syndrome Office Visit 12/02/2013 10:10a [facility] Internal Delilah Olvera, 719.45 Pain Joint Medicine - MJose Pelvic Region [place] & Thigh 847.0 Sprains & Strains Neck 269.2 Vitamin Deficiency Unspec 794.8 Liver Study Abnormal V77.91 Screening For Lipoid Disorders 536.8 Stomach Dyspepsia & Other Spec Disorders Of Function Office Visit 06/30/2013 10:10a [facility] Internal Delilah 726.32 Epicondylitis Santo Olvera M.D. Lateral [place] 268.9 Vitamin D Deficiency Unspec Office Visit 06/02/2013 9:20a [facility] Internal Mario 455.4 Hemorrhoids Santo Renner M.D. External [place] Thrombosed Office Visit 04/29/2013 2:30p [facility] Internal Delilah Olvera, 780.52 Insomnia Medicine - Bo[place] Unspecified [place] 300.09 Anxiety States Other 719.45 Pain Joint Pelvic Region & Thigh Office Visit 04/24/2013 4:00p [facility] Internal Vani Jalloh, 729.1 Myalgia & Myositis Medicine - [place] Unspec [place] Office Visit 04/20/2013 3:40p [facility] Internal Josefa Lima 718.85 Derangement Joint Medicine - M.DHeydi Other Not [place] Elsewhere Class Pelvic & Thigh 300.09 Anxiety States Other Office Visit 03/24/2013 1:45p Orthopedic Qian Thurston.85 Derangement Joint Services Of M.D. Other Not [facility] Elsewhere Class Pelvic & Thigh Office Visit 02/12/2013 3:00p Orthopedic Qian Thurston.85 [facility] Of M.D. Other Not C.M.A. Elsewhere Class Pelvic & Thigh Office Visit 02/06/2013 12:40p [facility] Internal Josefa Lima, 847.9 Sprains & Strains Medicine Glenn M.DHeydi Unspec Site Of [place] Back 848.3 Sprains & Strains Ribs Office Visit 01/09/2013 Orthopedic Luis Mack, 719.45 Pain Joint Pelvic 10:15a Services Of M.DHeydi Region & Thigh C.M.A. Office Visit 12/24/2012 [facility] Internal Delilah 715.15 Osteoarthrosis 11:50a Santo Olvera M.D. Localized Prim [place] Pelvic & Thigh Office Visit 12/04/2012 [facility] Internal Miladys 784.0 Headache 2:00p Juan Jose Zamora N.P. 524.60 Temporomandibular Joint Disorders Unspec Office Visit 11/25/2012 1:50p [facility] Mahendra Olvera, 848.8 Sprains & Medicine - M.Mic Strains Other [place] Spec Sites 715.15 Osteoarthrosis Localized Prim Pelvic & Thigh 269.2 Vitamin Deficiency Unspec 794.8 Liver Study Abnormal V04.81 Need For Prophylactic Vaccination & Inoculation/Influenza Office Visit 09/18/2012 10:10a Joseph Olvera, V76.2 Screening Santo Elizabeth M.D. Malignant [place] Neoplasm Cervix 729.1 Myalgia & Myositis Unspec V72.31 Routine Library Science Instructor Examination Office Visit 09/04/2012 11:50a [facility] Mahendra Mazariegos V74.5 Screening Santo Olvera M.D. Examination [place] Venereal Disease 465.8 Upper Respiratory Infections Acute Other Multiple Sites V72.31 Routine Library Science Instructor Examination 625.0 Dyspareunia Office Visit 07/22/2012 10:30a [facility] Mahendra Olvera, 794.8 Liver Study Santo - [place] Abnormal [place] 729.1 Myalgia & Myositis Unspec 789.06 Pain Abdominal Epigastric 564.1 Irritable Bowel Syndrome 578.1 Blood In Stool Melena Office Visit 07/16/2012 10:30a Joseph Mazariegos 789.03 Pain Abdominal Santo Olvera M.D. Right Lower [place] Quadrant 789.06 Pain Abdominal Epigastric 729.1 Myalgia & Myositis Unspec Plan of Treatment Future Appointment(s):11/20/2018 4:00 pm - Ector Meredith, M.D. at [facility]10/30/2018 - Ector Harper M.D.L40.50 Arthropathic psoriasis, [id number] Spondylosis without myelopathy or radiculopathy, cervical reZ79.899 Other rat exterminator (current) drug [id number] Elevated erythrocyte sedimentation rateR10.13 Epigastric painFollow up:FOllow up in 3 weeks or sooner if needed
--- NOTE | 2018-11-13 12:57 | ED ---
Upper Extremity Pain - HPI Summary HPI Summary: Pt presents w/ chronic recurring B/L pain in hands/wrists x months or longer. She reports sx include intermittent swelling, stiffness, tingling of hands. Follows w/ PCP and Dr. Harper (rheumatology). She has been assessed with cervical MRI in the past and has some degenerative findings - steroid injection in this region was inconclusive for hand pain relief as she didn't have radiculopathy at that time. Unsure if she's had a nerve conduction study but was told she doesn't have CTS. Dr. Harper has placed an order for MRI which is pending approval - here today because she was hoping to get an expedited MRI. Has tried meloxicam and topical voltaren as of late w/o relief. 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 Denies fever,chills new sx. Reports autoimmune inflammatory labs are negative but she was dx'd w/ fibromyalgia. Concerned as she just bought a house and wants to continue working but this has become difficult w/ her sx. NOTE: postmenopausal x 2-3 years. No known h/o osteopenia/porosis. Has had Vit D and B12 levels checked in the past as well. - History of Current Complaint Chief Complaint: EDExtremityUpper Stated Complaint: BOTH HANDS SWELLING/NUMBNESS Time Seen by Provider: 11/13/18 11:40 Hx Obtained From: Patient Hx Last Menstrual Period: january 2015 - iud - Allergies/Home Medications Allergies/Adverse Reactions: Allergies Allergy/AdvReac Type Severity Reaction Status Date / Time MS Iohexol [From Omnipaque] Allergy pt stated Verified 11/13/18 11:13 mouth,tongue,lip felt numb after injection . MS Latex [Latex] Allergy Itching Verified 11/13/18 11:13 MS Milnacipran [From Savella] Allergy Unknown Verified 11/13/18 11:13 Reaction Details MS Phenazopyridine Allergy Hives/Diff. Verified 11/13/18 11:13 [From Pyridium] Breathing/I tching MS Shellfish Allergy AdvReac Blisters Verified 11/13/18 11:13 [Shellfish Allergy] MS Sulfamethoxazole AdvReac Itching Verified 11/13/18 11:13 w/Trimethoprim [From Bactrim] contrast dye Allergy pt stated Uncoded 11/13/18 11:13 mouth,tongue,lip felt numb after injection . PMH/Surg Hx/FS Hx/Imm Hx Previously Healthy: Yes Endocrine/Hematology History: Reports: Hx Anemia, Other Endocrine/Hematological Disorders - Hepatic (Fatty Liver) Denies: Hx Diabetes, Hx Thyroid Disease Cardiovascular History: Denies: Hx Hypertension, Hx Pacemaker/ICD Respiratory History: Reports: Hx Chronic Bronchitis, Hx Seasonal Allergies Denies: Hx Asthma, Hx Chronic Obstructive Pulmonary Disease (COPD) GI History: Reports: Hx Gastroesophageal Reflux Disease, Hx Irritable Bowel, Hx Ulcer History: Reports: Hx Kidney Stones Denies: Hx Dialysis, Hx Renal Disease Musculoskeletal History: Reports: Hx Arthritis, Hx Back Problems - neck, Hx Fibromyalgia, Hx Tendonitis, Other Musculoskeletal History - Spinal stenosis; Degenerative Disc Disease Sensory History: Reports: Hx Contacts or Glasses Denies: Hx Hearing Aid Opthamlomology History: Reports: Hx Contacts or Glasses Neurological History: Reports: Hx Headaches - TMJ, Other Neuro Impairments/ Disorders - PAIN CLINIC PATIENT Psychiatric History: Denies: Hx Panic Disorder - Cancer History Cancer Type, 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 right hip arthroscopy 07/08/2013 [place]. HEMORROIDECTOMY. WISDOM TEETH EXTRACTION. LEFT HIP ARTHROSCOPY/ DEBRIDEMENT 02/02, [place],. 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 Negative: Weakness, Numbness Positive: Anxious - stressed about pain interferring w/ work All Other Systems Reviewed And Are Negative: Yes Physical Exam Triage Information Reviewed: Yes Vital Signs On Initial Exam: Initial Vitals Temp Pulse Resp BP Pulse Ox 97.7 F 96 16 118/79 99 11/13/18 11:09 11/13/18 11:09 11/13/18 11:09 11/13/18 11:09 11/13/18 11:09 Vital Signs Reviewed: Yes Appearance: Positive: Well-Appearing, Well-Nourished, Pain Distress - mild Skin: Positive: Warm, Skin Color Reflects Adequate Perfusion, Dry - no erythema , no ecchymosis, no lesions over hands Head/Face: Positive: Normal Head/Face Inspection Eyes: Positive: EOMI ENT: Positive: Hearing grossly normal Respiratory/Lung Sounds: Positive: Breath Sounds Present Cardiovascular: Positive: Pulses are Symmetrical in both Upper and Lower Extremities. Negative: Leg Edema Left, Leg Edema Right, Other - no edema in UE' s Musculoskeletal: Positive: Strength/ROM Intact, Pain @ - proximal flexor insertion site TTP - pain in B/L wrists w/ Tinel's; extensor insertion NTTP Neurological: Positive: Normal, Sensory/Motor Intact, Alert, Oriented to Person Place, Time, CN Intact II-III Psychiatric: Positive: Normal - Norris Coma Scale Best Eye Response: 4 - Spontaneous Best Motor Response: 6 - Obeys Commands Best Verbal Response: 5 - Oriented Coma Scale Total: 15 Diagnostics - Vital Signs Vital Signs Temp Pulse Resp BP Pulse Ox 11/13/18 11:09 97.7 F 96 16 118/79 99 - Laboratory Lab Statement: Any lab studies that have been ordered have been reviewed, and results considered in the medical decision making process. Course/Dx - Course Course Of Treatment: Discussed importance of rest, stretches, and ice alternating with heat. Will trial course of steroid today as this is a chronic issue. She will f/u w/ PCP to report results of steroid trial as well as to inquire about potential benefits of PT. She will proceed w/ MRI as directed. Suggested work alternative if income is an issue as her current job is most likely exacerbating sx. 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 You've been given a short course of a steroid today to help reduce pain and inflammation. Take as directed. Additionally, you may try upper extremity stretches and self massage to improve your symptoms. You may also try an ulnar strap - seek advice at a medical supply store. If these recommendations seem to help, he may benefit from physical therapy. Please inquire with her primary care provider. Note: We also discussed following up with your PCP to check your bone density which may be done with a DEXA scan. Call to schedule an appointment. - Billing Disposition and Condition Condition: STABLE Disposition: Home
[2018-11-13] MEDS ORDERED: methylPREDNISolone SOD 40 MG* 1 ML VIAL IM SCH (13:00)
[2018-11-13 13:43] VITALS: BP 129/81
== END 2018-11-13 13:42 | disposition home or self-care (01) ==
LOC: ED 11:07
DX: M79.642 Pain in left hand (principal); M79.641 Pain in right hand; M77.00 Medial epicondylitis, unspecified elbow; K21.9 Gastro-esophageal reflux disease without esophagitis
CPT/HCPCS: 96372; 99282; J2920

== ENCOUNTER 2019-08-11 16:10 | Emergency (ER) | payer BC ==
[2019-08-11 18:11] LABS: ABS Eosinophils 0.1 10^3/ul (0-0.6); ABS Lymphocytes 2.4 10^3/ul (1.0-4.8); ABS Monocytes 0.4 10^3/ul (0-0.8); ABS Neutrophils 2.6 10^3/ul (1.5-7.7); Hematocrit 39 % (35-47); Hemoglobin 13.3 g/dL (12.0-16.0); Lymphocyte % 43.3 %; Mean Corpuscular HGB Conc 34 g/dL (31-36); Mean Corpuscular Hemoglobin 29 pg (27-31); Mean Corpuscular Volume 85 fL (80-97); Mean Platelet Volume 9.3 fL (7.4-10.4); Nucleated Red Blood Cells % 0.1; Platelet Count 224 10^3/uL (150-450); Red Blood Count 4.56 10^6 /uL (3.70-4.87); Red Cell Distribution Width 14 % (10-15); White Blood Count 5.4 10^3/uL (3.5-10.8)
[2019-08-11] MEDS ORDERED: NS 0.9% 1000 ML** 1,000 ML IV ONE (19:07)
[2019-08-11] MEDS ORDERED: diPHENhydraMINE IV* 50 MG/ML 1 ml VIAL (BENADRYL) IV ONE (19:07)
[2019-08-11] MEDS ORDERED: PROCHLORPERAZINE INJ 5 MG/ML 2 ML VIAL IV ONE (19:07)
--- NOTE | 2019-08-11 19:40 | ED ---
Head Injury - HPI Summary HPI Summary: 44-year-old female presents with eye and ear sensitivity for past 2 weeks. States she feels a pressure ear. She admits to some neck pain. Also has a headache. She admits to nausea. She states that she has some blurry vision. She does have a history of migraines but it was many years ago. She denies any fevers. Did have some sinus congestion and a sore throat intermittent in the past couple days. He states her symptoms got worse in the past 2 days. Headache is not the worst headache of her leg. States it is 6 out of 10. Has history of neck issues. She states she also has dizziness that is worse when she moves her head. No chest pain or shortness of breath. No cough. - History Of Current Complaint Chief Complaint: EDGeneral Stated Complaint: EYES AND EARS HURT PER PT Time Seen by Provider: 08/11/19 18:52 Hx Last Menstrual Period: january 2015 - iud Pain Intensity: 7 - Allergies/Home Medications Allergies/Adverse Reactions: Allergies Allergy/AdvReac Type Severity Reaction Status Date / Time iohexol Allergy pt stated Verified 08/11/19 16:40 mouth,tongue,lip felt numb after injection . latex Allergy Itching Verified 08/11/19 16:40 milnacipran Allergy Unknown Verified 08/11/19 16:40 Reaction Details phenazopyridine Allergy Hives/Diff. Verified 08/11/19 16:40 Breathing/I tching shellfish derived Allergy Blisters Verified 08/11/19 16:40 Sulfa (Sulfonamide Allergy Itching Verified 08/11/19 16:40 Antibiotics) Home Medications: Home Medications Albuterol inh POWDER (NF) [Proair Respiclick] 2 puff INH Q4HR 08/11/19 [History Confirmed 08/11/19] Amoxicillin/Clavulanate TAB* [Augmentin TAB 875*] 875 mg PO BID 08/11/19 [ History Confirmed 08/11/19] Gabapentin CAP(*) [Neurontin 300 CAP(*)] 300 mg PO QAM 08/11/19 [History Confirmed 08/11/19] Gabapentin CAP(*) [Neurontin 300 CAP(*)] 600 mg PO QPM 08/11/19 [History Confirmed 08/11/19] Ibuprofen TAB* [Advil TAB*] 600 mg PO Q8H PRN 08/11/19 [History Confirmed ] PMH/Surg Hx/FS Hx/Imm Hx Endocrine/Hematology History: Reports: Hx Anemia, Other Endocrine/Hematological Disorders - Hepatic (Fatty Liver)enlarged for 10+ years Denies: Hx Diabetes, Hx Thyroid Disease Cardiovascular History: Denies: Hx Hypertension, Hx Pacemaker/ICD Respiratory History: Reports: Hx Asthma - s/t seasonal allergies, Hx Chronic Bronchitis, Hx Seasonal Allergies Denies: Hx Chronic Obstructive Pulmonary Disease (COPD) GI History: Reports: Hx Gastroesophageal Reflux Disease, Hx Irritable Bowel, Hx Ulcer - pt not sure of this Dx History: Reports: Hx Kidney Stones - known stone former Denies: Hx Dialysis, Hx Renal Disease Musculoskeletal History: Reports: Hx Arthritis, Hx Back Problems - neck and upper back, Hx Fibromyalgia, Hx Tendonitis, Other Musculoskeletal History - Spinal stenosis; Degenerative Disc Disease Sensory History: Reports: Hx Contacts or Glasses Denies: Hx Hearing Aid Opthamlomology History: Reports: Hx Contacts or Glasses Neurological History: Reports: Hx Headaches - TMJ, Hx Migraine, Other Neuro Impairments/Disorders - PAIN CLINIC PATIENT Psychiatric History: Denies: Hx Panic Disorder - Cancer History Cancer Type, 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 right hip arthroscopy WITH DEBRIDEMENT 07/08/2013 [place]. HEMORROIDECTOMY. WISDOM TEETH EXTRACTION. LEFT HIP ARTHROSCOPY/DEBRIDEMENT 02/02, [place],. PRECANCEROUS SKIN CELLS REMOVED 01/2016 Infectious Disease History: No Infectious Disease History: Denies: Hx Clostridium Difficile, Hx Hepatitis, Hx Human Immunodeficiency Virus (HIV), Hx of Known/Suspected MRSA, Hx Shingles, Hx Tuberculosis, Hx Known/ Suspected VRE, Hx Known/Suspected VRSA, History Other Infectious Disease, Traveled Outside the [place] in Last 30 Days - Family History Known Family History: Positive: Cardiac Disease - mother, Hypertension, Other - mother - aortic aneurysm - Social History Alcohol Use: Occasionally Hx Substance Use: No Substance Use Type: Reports: None Hx Tobacco Use: No Smoking Status (MU): Never Smoked Tobacco Review of Systems Negative: Fever Positive: Photophobia, Other - phonophobia Positive: Sore Throat, Nasal Discharge Negative: Chest Pain Negative: Shortness Of Breath Positive: Vomiting, Nausea Positive: Headache All Other Systems Reviewed And Are Negative: Yes Physical Exam Triage Information Reviewed: Yes Vital Signs On Initial Exam: Initial Vitals Temp Pulse Resp BP Pulse Ox 97.3 F 79 18 167/104 99 08/11/19 16:34 08/11/19 16:34 08/11/19 16:34 08/11/19 16:34 08/11/19 16:34 Vital Signs Reviewed: Yes Appearance: Positive: Well-Appearing Skin: Positive: Warm, Dry Head/Face: Positive: Normal Head/Face Inspection Eyes: Positive: Normal, EOMI, KEYONNA, Conjunctiva Clear, Other: - nystagmus noted ENT: Positive: Pharynx normal, TMs normal - fluid behind bilateral Neck: Positive: Supple, Nontender, No Lymphadenopathy. Negative: Nuchal Rigidity Respiratory/Lung Sounds: Positive: Clear to Auscultation, Breath Sounds Present Cardiovascular: Positive: Normal, RRR Abdomen Description: Positive: Nontender, Soft Bowel Sounds: Positive: Present Neurological: Positive: Sensory/Motor Intact, Alert, Oriented to Person Place, Time, CN Intact II-III, Finger to Nose - difficulty with such due to photophobia , Isabella-[place] Test - positive, Other - nystagmus present Psychiatric: Positive: Normal Procedures - Sedation Patient Received Moderate/Deep Sedation with Procedure: No Diagnostics - Vital Signs Vital Signs Temp Pulse Resp BP Pulse Ox 08/11/19 18:52 81 100 08/11/19 18:50 140/84 08/11/19 18:22 97.7 F 87 16 117/88 99 08/11/19 16:34 97.3 F 79 18 167/104 99 - Laboratory Lab Results: Lab Results 08/11/19 Range/Units 18:02 WBC 5.4 (3.5-10.8) 10^3/uL RBC 4.56 (3.70-4.87) 10^6 /uL Hgb 13.3 (12.0-16.0) g/dL Hct 39 (35-47) % MCV 85 (80-97) fL MCH 29 (27-31) pg MCHC 34 (31-36) g/dL RDW 14 (10-15) % Plt Count 224 (150-450) 10^3/uL MPV 9.3 (7.4-10.4) fL Neut % (Auto) 48.3 % Lymph % (Auto) 43.3 % [place] % (Auto) 6.8 % Eos % (Auto) 1.0 % Baso % (Auto) 0.6 % Absolute Neuts (auto) 2.6 (1.5-7.7) 10^3/ul Absolute Lymphs (auto) 2.4 (1.0-4.8) 10^3/ul Absolute Monos (auto) 0.4 (0-0.8) 10^3/ul Absolute Eos (auto) 0.1 (0-0.6) 10^3/ul Absolute Basos (auto) 0.0 (0-0.2) 10^3/ul Absolute Nucleated RBC 0.0 10^3/ul Nucleated RBC % 0.1 Result Diagrams: 08/11/19 18:02 08/11/19 18:02 Lab Statement: Any lab studies that have been ordered have been reviewed, and results considered in the medical decision making process. - CT brain CT Interpretation Completed By: Radiologist Summary of CT Findings: IMPRESSION: No acute intracranial findings. Normal head CT Re-Evaluation - Re-Evaluation First Eval Change: Improved Comment: feeling better Second Eval Re-Evaluation Time: 22:02 Change: Improved Comment: feeling better Head Injury Course/Dx Course Of Treatment: 44-year-old female presents with eye and ear sensitivity for past 2 weeks. States she feels a pressure ear. She admits to some neck pain. Also has a headache. She admits to nausea. She states that she has some blurry vision. She does have a history of migraines but it was many years ago. She denies any fevers. Did have some sinus congestion and a sore throat intermittent in the past couple days. He states her symptoms got worse in the past 2 days. Headache is not the worst headache of her leg. States it is 6 out of 10. Has history of neck issues. She states she also has dizziness that is worse when she moves her head. No chest pain or shortness of breath. No cough. On exam is photophobic. Has nystagmus noted. Positive Isabella-Hallpike to the right. finger to nose has difficulty with unclear if due to photophobia. CN intact. CT brain normal. lab work wnl. gave migraine cocktail and symptoms improved. will discharge to have follow up with neurology. patient understand and agrees with plan. - Diagnoses Differential Diagnosis/HQI/PQRI: Intracranial Bleed, Other - migraine, CVA, Provider Diagnoses: Dizziness, Headache, Photophobia Discharge ED - Sign-Out/Discharge Documenting (check all that apply): Patient Departure - Discharge Plan Condition: Good Disposition: HOME Prescriptions: Meclizine TAB* [Antivert 12.5 TAB*] 25 mg PO TID #15 tab Ondansetron ODT TAB* [Zofran 4 MG Odt TAB*] 4 mg PO Q6H PRN #16 tab.odt PRN Reason: Nausea Patient Education Materials: Vertigo (ED) Referrals: Delilah Olvera MD [Primary Care Provider] - Nick Knutson MD [Medical Doctor] - Additional Instructions: Take meclizine up to 3 tablets a day for dizziness take Tylenol or ibuprofen every 6 hours as needed for pain Take zofran every 6 hours as needed for nausea Drink plenty of fluids Follow up with primary within 5 days follow up with neurology Return to ED if develop any new or worsening symptoms - Billing Disposition and Condition Condition: GOOD Disposition: Home - Attestation Statements Provider Attestation: I was available for consult. This patient was seen by the KATY. The patient was not presented to, seen by, or examined by me. Christopher Muñoz MD
[2019-08-11 19:55] LABS: ALT 19 U/L (7-52); AST 23 U/L (13-39); Albumin 4.7 g/dL (3.2-5.2); Albumin/Globulin Ratio 1.5 (1-3); Alkaline Phosphatase 61 U/L (34-104); Anion Gap 9 mmol/L (2-11); BUN/Creatinine Ratio 12.7 (8-20); Blood Urea Nitrogen 10 mg/dL (6-24); C Reactive Protein < 1.00 mg/L (<8.01); CO2 Carbon Dioxide 26 mmol/L (22-32); Chloride 104 mmol/L (101-111); EGFR African American 95.2 (>60); EGFR Non-African American 78.7 (>60); Globulin 3.1 g/dL (2-4); Glucose 95 mg/dL (70-100); HCG Pregnancy 1.59 mIU/mL; Potassium 4.2 mmol/L (3.5-5.0); Sodium 139 mmol/L (135-145); Total Protein 7.8 g/dL (6.4-8.9)
[2019-08-11] MEDS ORDERED: Ketorolac INJ* 30 MG/ML 1 ML VIAL IV PUSH ONE (20:44)
[2019-08-11] MEDS ORDERED: Meclizine TAB* 12.5 MG PO ONE (20:44)
[2019-08-11 21:10] LABS: Urine Appearance Clear; Urine Bacteria Absent (Absent); Urine Bilirubin Negative (Negative); Urine Blood Negative (Negative); Urine Color Straw; Urine Glucose Negative (Negative); Urine Ketones Trace (Negative); Urine Nitrite Negative (Negative); Urine Protein Negative (Negative); Urine Red Blood Cell Trace(0-2/hpf) (Absent); Urine Specific Gravity 1.008 (1.010-1.030); Urine Squamous Epithelial Cell Present (Absent); Urine Urobilinogen Negative (Negative); Urine White Blood Cell Trace(0-5/hpf) (Absent)
[2019-08-11 22:14] VITALS: BP 133/78
== END 2019-08-11 22:44 | disposition home or self-care (01) ==
LOC: ED 16:10
DX: H53.149 Visual discomfort, unspecified (principal); R51 Headache; R42 Dizziness and giddiness; D64.9 Anemia, unspecified; J45.909 Unspecified asthma, uncomplicated; K21.9 Gastro-esophageal reflux disease without esophagitis; Z87.442 Personal history of urinary calculi; Z96.643 Presence of artificial hip joint, bilateral; Z79.899 Other long term (current) drug therapy; Z88.2 Allergy status to sulfonamides; Z88.8 Allergy status to other drugs, medicaments and biological substances; Z88.6 Allergy status to analgesic agent; Z91.041 Radiographic dye allergy status; Z91.040 Latex allergy status
CPT/HCPCS: 36415; 70450; 80053; 81003; 81015; 84702; 85025; 86140; 86618; 87086; 96361; 96374; 96375; 99283; A9270-GY; J0780; J1200; J1885